=== PATIENT | female | born 1970 | race African-American/Black ===

== ENCOUNTER 2018-06-11 10:57 | Inpatient (IN) | payer MEDICARE, OTHER ==
[2018-06-11] VITALS (10 sets, daily range): BP systolic 156–190; BP diastolic 0–90
[~2018-06-11] VITALS: Ht 165.1 cm; Wt 128.9 kg
[~2018-06-11 10:57] MED LIST: ALBU2.5V5 NEB; LISI1TAB7 PO; MELO7.5T29 PO; METF500T16 PO; METO50TA6 PO; OMEP40CA5 PO; TRAM50TA PO; VENTOLIN HFA8 GM IH
[2018-06-11] MEDS ORDERED: methylPREDNISolone SOD SUCC PF 125 MG/2 ML VIAL. IV ONE (11:30)
[2018-06-11] MEDS ORDERED: cloNIDine HCL 0.1 MG TABLET PO ONE (11:30)
[2018-06-11] MEDS ORDERED: amLODIPine BESYLATE 5 MG TABLET PO ONE (11:30)
[2018-06-11] MEDS ORDERED: IPRATRPIUM/ALBUTEROL 0.5/2.5MG 3 ML NEBU. NEB ONE (11:30)
--- NOTE | 2018-06-11 11:31 | PHYS DOC ---
Past Medical History Past Medical History: Asthma, Diabetes-Type II, Hypertension, Schizophrenia Additional Past Medical Histor: schizoeffective disorder, bipolar,obesity Past Surgical History: Alcohol Use: Occasionally Drug Use: Cocaine, Marijuana Adult General Chief Complaint Chief Complaint: ASTHMA HPI HPI Patient is a 47 [facility] She has been out of her blood pressure medication for at least a few weeks. She is still smoking she has a history of asthma she is coming in with increasing shortness of breath as well as sleepiness in the setting of increased cough over the last 2-3 days she does have her inhalers she has been using them but they are not providing adequate relief. Sat was in the mid 80s she is on home oxygen 2-3 L. She disposed using CPAP she is not using it. Further history was limited by patient's mental status. Review of Systems Review of Systems Limited by mental status Current Medications Current Medications Current Medications Medications (Trade) Dose Ordered Sig/Evelin Start Time Stop Time Status Last Admin Dose Admin Albuterol/ Ipratropium (Duoneb) 3 ml 1X ONCE 06/11/18 11:30 06/11/18 11:31 DC 06/11/18 11:45 3 ML Amlodipine Besylate (Norvasc) 10 mg 1X ONCE 06/11/18 11:30 06/11/18 11:31 DC 06/11/18 11:46 10 MG Clonidine HCl (Catapres) 0.2 mg 1X ONCE 06/11/18 11:30 06/11/18 11:31 DC 06/11/18 11:44 0.2 MG Methylprednisolone Sodium Succinate (SOLU-Medrol 125MG VIAL) 125 mg 1X ONCE 06/11/18 11:30 06/11/18 11:31 DC 06/11/18 11:44 125 MG Allergies Allergies Allergies Coded Allergies Type Severity Reaction Last Updated Verified No Known Drug Allergies 04/22/16 No Physical Exam Physical Exam Constitutional: Well developed, in moderate distress sleepy but arousable to voice. Obese HENT: Normocephalic, atraumatic, bilateral external ears normal, oropharynx moist, no oral exudates, nose normal. [] Eyes: PERRLA, EOMI, conjunctiva normal, no discharge. [] Neck: Normal range of motion, no tenderness, supple, no stridor. [] Cardiovascular:Heart rate regular rhythm, no murmur [] Lungs & Thorax: Wheezing noted bilaterally increased respiratory effort as noted. Abdomen: Bowel sounds normal, soft, no tenderness, no masses, no pulsatile masses. [] Skin: Warm, dry, no erythema, no rash. [] Back: No tenderness, no CVA tenderness. [] Extremities: No tenderness, no cyanosis, no clubbing, ROM intact, obese difficult to assess for edema Neurologic: Alert and oriented X 3 stimulated by voice only., normal motor function, normal sensory function, no focal deficits noted. [] Psychologic: Affect normal, judgement normal, mood normal. [] Current Patient Data Vital Signs Vital Signs Date Time Temp Pulse Resp B/P (MAP) Pulse Ox O2 Delivery O2 Flow Rate FiO2 06/11/18 11:46 87 215/121 06/11/18 11:30 95 Room Air 3.0 06/11/18 11:04 98.2 26 98.2 Lab Values Laboratory Tests Test 06/11/18 11:16 06/11/18 11:30 O2 Saturation 96 % (92-99) Arterial Blood pH 7.38 (7.35-7.45) Arterial Blood pCO2 at Patient Temp 57 mmHg (35-46) H Arterial Blood pO2 at Patient Temp 80 mmHg (75-108) Arterial Blood HCO3 33 mmol/L (21-28) H Arterial Blood Base Excess 6 mmol/L (-3-3) H FiO2 34 White Blood Count 9.4 x10^3/uL (4.0-11.0) Red Blood Count 6.66 x10^6/uL (3.50-5.40) H Hemoglobin 15.8 g/dL (12.0-15.5) H Hematocrit 49.1 % (36.0-47.0) H Mean Corpuscular Volume 74 fL (79-100) L Mean Corpuscular Hemoglobin 24 pg (25-35) L Mean Corpuscular Hemoglobin Concent 32 g/dL (31-37) Red Cell Distribution Width 25.5 % (11.5-14.5) H Platelet Count 239 x10^3/uL (140-400) Neutrophils (%) (Auto) 74 % (31-73) H Lymphocytes (%) (Auto) 18 % (24-48) L Monocytes (%) (Auto) 7 % (0-9) Eosinophils (%) (Auto) 1 % (0-3) Basophils (%) (Auto) 1 % (0-3) Neutrophils # (Auto) 7.0 x10^3uL (1.8-7.7) Lymphocytes # (Auto) 1.7 x10^3/uL (1.0-4.8) Monocytes # (Auto) 0.6 x10^3/uL (0.0-1.1) Eosinophils # (Auto) 0.1 x10^3/uL (0.0-0.7) Basophils # (Auto) 0.0 x10^3/uL (0.0-0.2) Platelet Estimate Adequate (ADEQUATE) Giant Platelets Occ Polychromasia Mod Anisocytosis Mod Microcytosis Slight Laboratory Tests 06/11/18 11:30 EKG EKG [] Interpretation Time: EKG shows a normal sinus rhythm rate of 85 no obvious acute ischemic changes noted the QTC was 471 this was interpreted by me time of encounter. Radiology/Procedures Radiology/Procedures [] Course & Med Decision Making Course & Med Decision Making Pertinent Labs and Imaging studies reviewed. (See chart for details) Interpretation of blood gas did show a pH of 7.37 with a PCO2 of 57 and a bicarbonate of 32.8 this is a mostly compensated chronic respiratory acidosis Critical care time was 35 minutes exclusive of procedures. For management of acute hypoxemic respiratory failure requiring oxygen support frequent nebs ABG evaluation and close monitoring the emergency room. 47 okay with a history of asthma obesity and sleep apnea who is basically noncompliant she is still smoking she is not using CPAP, she is offered pressure medications for several days at least presenting with acute hypoxemic respiratory failure. We'll get psych she did not look terrible CO2 was elevated but the pH was okay. Patient did have some somnolence I recommended BiPAP she declined that she refused it she did actually even at 1.1 of leaving AGAINST MEDICAL ADVICE but I was able to convince her to stay. BNP was mildly elevated chest x-ray looks slightly wet so ordered a dose of Lasix blood pressure at this time as of 1:15 PM is 178 systolic after the above treatment. Patient be managed the intensive care unit under the care of Dr. Ch for further management. Nathan Disclaimer Dragon Disclaimer This electronic medical record was generated, in whole or in part, using a voice recognition dictation system. Departure Departure Impression: Primary Impression: Asthma exacerbation Disposition: ADMITTED INPATIENT Admitting Physician: El Stauffer Condition: STABLE Referrals: UNKNOWN PCP NAME (PCP) DEEP BARGER MD Jun 11, 2018 11:31
[2018-06-11 11:50] LABS: BASE EXCESS ABG 6 mmol/L (-3-3); HCO3 ABG 33 mmol/L (21-28); PCO2 ABG 57 mmHg (35-46); PO2 ABG 80 mmHg (75-108); SAT O2 ABG 96 % (92-99)
[2018-06-11 11:59] LABS: BASO % 1 % (0-3); EOS # 0.1 x10^3/uL (0.0-0.7); EOS % 1 % (0-3); HEMATOCRIT 49.1 % (36.0-47.0); HEMOGLOBIN 15.8 g/dL (12.0-15.5); LYMPH # 1.7 x10^3/uL (1.0-4.8); LYMPH % 18 % (24-48); MEAN CORPUSCULAR HEMOGLOBIN 24 pg (25-35); MEAN CORPUSCULAR HGB CONC 32 g/dL (31-37); MEAN CORPUSCULAR VOLUME 74 fL (79-100); MONO # 0.6 x10^3/uL (0.0-1.1); MONO % 7 % (0-9); NEUT % 74 % (31-73); PLATELET COUNT 239 x10^3/uL (140-400); RED BLOOD COUNT 6.66 x10^6/uL (3.50-5.40); RED CELL DISTRIBUTION WIDTH 25.5 % (11.5-14.5); WHITE BLOOD COUNT 9.4 x10^3/uL (4.0-11.0)
--- NOTE | 2018-06-11 12:05 | PDOC1 ---
History and Physical Date of Admission Date of Admission DATE: 06/11/18 TIME: 12:04 Identification/Chief Complaint Chief Complaint CC SEEN IN ER , brought in by emesis with shortness of breath., has been out of her blood pressure medication for at least a few weeks. still smoking she has a history of asthma NOTES increasing shortness of breath as well as sleepiness in the setting of increased cough over the last 2- 3 days Sat was in the mid 80s she is on home oxygen 2-3 L. Past Medical History Past Medical History Past Medical History Past Medical History Past Medical History: Asthma, Diabetes-Type II, Hypertension, Schizophrenia Additional Past Medical Histor: schizoeffective disorder, bipolar,obesity Past Surgical History: Alcohol Use: Occasionally Drug Use: Cocaine, Marijuana family hx obesity Cardiovascular: HTN, Hyperlipidemia Pulmonary: Asthma Psych: Addictions ENT: No pertinent hx Endocrine: Diabetes Past Surgical History Past Surgical History: No pertinent history Family History Family History: Asthma Social History Smoke: <1 pack per day ALCOHOL: occassional Drugs: None, Cocaine Current Problem List Problem List Problems Medical Problems: (1) Asthma exacerbation Status: Acute Current Medications Current Medications Current Medications Albuterol/ Ipratropium (Duoneb) 3 ml 1X ONCE NEB Last administered on at 11:45; Start 06/11/18 at 11:30; Stop 06/11/18 at 11:31; Status DC Methylprednisolone Sodium Succinate (SOLU-Medrol 125MG VIAL) 125 mg 1X ONCE IV Last administered on 06/11/18at 11:44; Start 06/11/18 at 11:30; Stop 06/11/18 at 11:31; Status DC Clonidine HCl (Catapres) 0.2 mg 1X ONCE PO Last administered on 06/11/18at 11: 44; Start 06/11/18 at 11:30; Stop 06/11/18 at 11:31; Status DC Amlodipine Besylate (Norvasc) 10 mg 1X ONCE PO Last administered on 06/11/18at 11:46; Start 06/11/18 at 11:30; Stop 06/11/18 at 11:31; Status DC Active Scripts Active Reported Albuterol Sulfate Neb Soln (Albuterol Sulfate) 2.5 Mg/3 Ml Vial.neb 1 Vial NEB PRN Q4HRS Metoprolol Tartrate 50 Mg Tablet 1 Tab PO DAILY Ventolin Hfa (Albuterol Sulfate) 8 Gm Hfa.aer.ad 8 Gm IH Metformin Hcl 500 Mg Tablet 1 Tab PO TID Tramadol Hcl 50 Mg Tablet 1 Tab PO BID Meloxicam 7.5 Mg Tablet 1 Tab PO BID Lisinopril-Hctz 20-25 Mg Tab (Lisinopril/Hydrochlorothiazide) 1 Each Tablet 1 Tab PO DAILY Omeprazole 40 Mg Capsule.dr 1 Cap PO DAILY Allergies Allergies: Coded Allergies: No Known Drug Allergies (Unverified , 04/22/16) ROS Review of System Physical Exam Physical Exam Constitutional: Well developed, in moderate distress sleepy arousable to voice. Obese HENT: Normocephalic, atraumatic, bilateral external ears normal, oropharynx moist, no oral exudates, nose normal. [] Eyes: PERRLA, EOMI, conjunctiva normal, no discharge. [] Neck: Normal range of motion, no tenderness, supple, no stridor. [] Cardiovascular:Heart rate regular rhythm, no murmur [] Lungs & Thorax: Wheezing noted bilaterally increased respiratory effort as noted. Abdomen: Bowel sounds normal, soft, no tenderness, no masses, no pulsatile masses. [] Skin: Warm, dry, no erythema, no rash. [] Back: No tenderness, no CVA tenderness. [] Extremities: No tenderness, no cyanosis, no clubbing, ROM intact, obese difficult to assess for edema Neurologic: Alert and oriented X 3 stimulated by voice only., normal motor function, normal sensory function, no focal deficits noted. [] Psychologic: Affect normal, judgement POOR, mood normal. [] General: YES: Fatigue, Malaise PSYCHOLOGICAL ROS: YES: Anxiety Eyes: No Blurry vision, No Decreased vision, No Double vision, No Dry eyes, No Excessive tearing, No Eye Pain, No Itchy Eyes, No Loss of vision, No Photophobia , No Scotomata, No Uses contacts, No Uses glasses, No Other HEENT: No: Heacaches, Visual Changes, Hearing change, Nasal congestion, Nasal discharge, Oral lesions, Sinus pain, Sore Throat, Epistaxis, Sneezing, Snoring, Tinnitus, Vertigo, Vocal changes, Other Respiratory: YES: Cough, Shortness of breath, SOB with excertion, Tachypnea, Wheezing Cardiovascular: No Chest Pain, No Palpitations, No Orthopnea, No Paroxysmal Noc. Dyspnea, No Edema, No Lt Headedness, No Other Gastrointestinal: Yes Nausea, Yes Vomiting Skin: Yes Dry Skin Physical Exam Physical Exam Breasts: Not examined Rectal Exam: not examined PELVIC: Examination not indicated Extremities: No edema Neuro: Normal speech, Cranial nerves 3-12 NL Vitals Vitals Vital Signs Date Time Temp Pulse Resp B/P (MAP) Pulse Ox O2 Delivery O2 Flow Rate FiO2 06/11/18 11:46 87 215/121 06/11/18 11:30 95 Room Air 3.0 06/11/18 11:04 98.2 26 98.2 Labs Labs Laboratory Tests Test 06/11/18 11:30 White Blood Count 9.4 x10^3/uL (4.0-11.0) Red Blood Count 6.66 x10^6/uL (3.50-5.40) Hemoglobin 15.8 g/dL (12.0-15.5) Hematocrit 49.1 % (36.0-47.0) Mean Corpuscular Volume 74 fL (79-100) Mean Corpuscular Hemoglobin 24 pg (25-35) Mean Corpuscular Hemoglobin Concent 32 g/dL (31-37) Red Cell Distribution Width 25.5 % (11.5-14.5) Platelet Count 239 x10^3/uL (140-400) Neutrophils (%) (Auto) 74 % (31-73) Lymphocytes (%) (Auto) 18 % (24-48) Monocytes (%) (Auto) 7 % (0-9) Eosinophils (%) (Auto) 1 % (0-3) Basophils (%) (Auto) 1 % (0-3) Neutrophils # (Auto) 7.0 x10^3uL (1.8-7.7) Lymphocytes # (Auto) 1.7 x10^3/uL (1.0-4.8) Monocytes # (Auto) 0.6 x10^3/uL (0.0-1.1) Eosinophils # (Auto) 0.1 x10^3/uL (0.0-0.7) Basophils # (Auto) 0.0 x10^3/uL (0.0-0.2) Laboratory Tests Test 06/11/18 11:30 White Blood Count 9.4 x10^3/uL (4.0-11.0) Red Blood Count 6.66 x10^6/uL (3.50-5.40) Hemoglobin 15.8 g/dL (12.0-15.5) Hematocrit 49.1 % (36.0-47.0) Mean Corpuscular Volume 74 fL (79-100) Mean Corpuscular Hemoglobin 24 pg (25-35) Mean Corpuscular Hemoglobin Concent 32 g/dL (31-37) Red Cell Distribution Width 25.5 % (11.5-14.5) Platelet Count 239 x10^3/uL (140-400) Neutrophils (%) (Auto) 74 % (31-73) Lymphocytes (%) (Auto) 18 % (24-48) Monocytes (%) (Auto) 7 % (0-9) Eosinophils (%) (Auto) 1 % (0-3) Basophils (%) (Auto) 1 % (0-3) Neutrophils # (Auto) 7.0 x10^3uL (1.8-7.7) Lymphocytes # (Auto) 1.7 x10^3/uL (1.0-4.8) Monocytes # (Auto) 0.6 x10^3/uL (0.0-1.1) Eosinophils # (Auto) 0.1 x10^3/uL (0.0-0.7) Basophils # (Auto) 0.0 x10^3/uL (0.0-0.2) VTE Prophylaxis Ordered VTE Prophylaxis Devices: Yes VTE Pharmacological Prophylaxi: Yes Assessment/Plan Assessment/Plan Impression: SevereAsthma exacerbation tobacco abuse cocaine abuse morbid obesity HYPERCAPNIC RESP FAILURE plan ADMITTED INPATIENT ICU BED IV STEROIDS SOLUMEDROL 125MG Q 6 HRS O2 SUPPORT PULM CONSULT SINGULAIR 10MG PO DAILY ZYRTEC 10 MG PO DAILY EDUCATED ON SMOKING CESSATION PROVIDED IV PROTONIX LOVENOX DVT PROPHYLAXIS 40 MIN CC TIME AMANDA KAMARA MD Jun 11, 2018 12:05
[2018-06-11 12:09] LABS: FIO2 ABG 34
--- NOTE | 2018-06-11 12:32 | EKG ---
[facility] [address] [place] [address] Test Date: 2018-06-11 Test Time: 11:31:56 Pat Name: DERICK JIMÉNEZ Department: Room: Gender: F Pharmacy Data Analyst: NESSA : 1970 Requested By: DEEP BARGER Order Number: [id number] Reading MD: Sumeet Dixon Measurements Intervals [place] Rate: 85 P: 48 MA: 146 QRS: -34 QRSD: 84 T: 22 QT: 396 QTc: 471 Interpretive Statements SINUS RHYTHM ABNORMAL LEFT AXIS DEVIATION QRS(T) CONTOUR ABNORMALITY CONSISTENT WITH INFERIOR INFARCT PROBABLY OLD ABNORMAL ECG Electronically Signed On 06-12-2018 11:13:11 CDT by Sumeet Dixon
--- NOTE | 2018-06-11 12:40 | RAD ---
Portable chest, 06/11/2018: HISTORY: Shortness of breath, wheezing, cough Comparison is made to a study from 04/22/2016. The heart is mildly enlarged and unchanged. The pulmonary vascularity is prominent, but better defined than on the previous study. No pulmonary infiltrate is seen. There is no evidence of pleural fluid. IMPRESSION: Cardiomegaly with borderline vascular congestion. Electronically signed by: Ac Muller MD (06/11/2018 12:37 PM) [facility]
[2018-06-11 12:51] LABS: CALCIUM 9.2 mg/dL (8.5-10.1); CREATININE 0.7 mg/dL (0.6-1.0); GFR 108.5; POTASSIUM 3.8 mmol/L (3.5-5.1)
[2018-06-11 12:53] LABS: PROTHROMBIN TIME PATIENT 12.4 SEC (11.7-14.0)
[2018-06-11 12:54] LABS: ANISOCYTOSIS MOD; MICROCYTOSIS SLIGHT; PLT ESTIMATE ADEQUATE (ADEQUATE); POLYCHROMASIA MOD
[2018-06-11 12:58] LABS: ALBUMIN 2.4 g/dL (3.4-5.0); ALBUMIN/GLOBULIN RATIO 0.5 (1.0-1.7); TOTAL BILIRUBIN 0.4 mg/dL (0.2-1.0); TOTAL PROTEIN 7.7 g/dL (6.4-8.2)
[2018-06-11] MEDS ORDERED: FUROSEMIDE 40 MG/4 ML VIAL. IVP ONE (13:15)
--- NOTE | 2018-06-11 16:26 | PDOC ---
PULMONARY PROGRESS NOTES Vitals Vital Signs Date Time Temp Pulse Resp B/P (MAP) Pulse Ox O2 Delivery O2 Flow Rate FiO2 06/11/18 15:00 95 25 177/0 (58) 91 Venturi Mask 12.0 06/11/18 14:00 98.8 98.8 Labs Laboratory Tests Test 06/11/18 11:16 06/11/18 11:30 06/11/18 12:32 O2 Saturation 96 % (92-99) Arterial Blood pH 7.38 (7.35-7.45) Arterial Blood pCO2 at Patient Temp 57 mmHg (35-46) Arterial Blood pO2 at Patient Temp 80 mmHg (75-108) Arterial Blood HCO3 33 mmol/L (21-28) Arterial Blood Base Excess 6 mmol/L (-3-3) FiO2 34 White Blood Count 9.4 x10^3/uL (4.0-11.0) Red Blood Count 6.66 x10^6/uL (3.50-5.40) Hemoglobin 15.8 g/dL (12.0-15.5) Hematocrit 49.1 % (36.0-47.0) Mean Corpuscular Volume 74 fL (79-100) Mean Corpuscular Hemoglobin 24 pg (25-35) Mean Corpuscular Hemoglobin Concent 32 g/dL (31-37) Red Cell Distribution Width 25.5 % (11.5-14.5) Platelet Count 239 x10^3/uL (140-400) Neutrophils (%) (Auto) 74 % (31-73) Lymphocytes (%) (Auto) 18 % (24-48) Monocytes (%) (Auto) 7 % (0-9) Eosinophils (%) (Auto) 1 % (0-3) Basophils (%) (Auto) 1 % (0-3) Neutrophils # (Auto) 7.0 x10^3uL (1.8-7.7) Lymphocytes # (Auto) 1.7 x10^3/uL (1.0-4.8) Monocytes # (Auto) 0.6 x10^3/uL (0.0-1.1) Eosinophils # (Auto) 0.1 x10^3/uL (0.0-0.7) Basophils # (Auto) 0.0 x10^3/uL (0.0-0.2) Platelet Estimate Adequate (ADEQUATE) Giant Platelets Occ Polychromasia Mod Anisocytosis Mod Microcytosis Slight Prothrombin Time 12.4 SEC (11.7-14.0) Prothromb Time International Ratio 1.0 (0.8-1.1) Maternal Serum HCG Beta Subunit 2 mIU/mL (0-5) Sodium Level 139 mmol/L (136-145) Potassium Level 3.8 mmol/L (3.5-5.1) Chloride Level 101 mmol/L (98-107) Carbon Dioxide Level 33 mmol/L (21-32) Anion Gap 5 (6-14) Blood Urea Nitrogen 7 mg/dL (7-20) Creatinine 0.7 mg/dL (0.6-1.0) Estimated GFR (Cockcroft-Gault) 108.5 BUN/Creatinine Ratio 10 (6-20) Glucose Level 165 mg/dL (70-99) Calcium Level 9.2 mg/dL (8.5-10.1) Total Bilirubin 0.4 mg/dL (0.2-1.0) Aspartate Amino Transf (AST/SGOT) 13 U/L (15-37) Alanine Aminotransferase (ALT/SGPT) 19 U/L (14-59) Alkaline Phosphatase 115 U/L (46-116) Troponin I Quantitative < 0.017 ng/mL (0.000-0.055) KI-Ndt-L-Type Natriuretic Peptide 515 pg/mL (0-124) Total Protein 7.7 g/dL (6.4-8.2) Albumin 2.4 g/dL (3.4-5.0) Albumin/Globulin Ratio 0.5 (1.0-1.7) Laboratory Tests Test 06/11/18 11:16 06/11/18 11:30 06/11/18 12:32 O2 Saturation 96 % (92-99) Arterial Blood pH 7.38 (7.35-7.45) Arterial Blood pCO2 at Patient Temp 57 mmHg (35-46) Arterial Blood pO2 at Patient Temp 80 mmHg (75-108) Arterial Blood HCO3 33 mmol/L (21-28) Arterial Blood Base Excess 6 mmol/L (-3-3) FiO2 34 White Blood Count 9.4 x10^3/uL (4.0-11.0) Red Blood Count 6.66 x10^6/uL (3.50-5.40) Hemoglobin 15.8 g/dL (12.0-15.5) Hematocrit 49.1 % (36.0-47.0) Mean Corpuscular Volume 74 fL (79-100) Mean Corpuscular Hemoglobin 24 pg (25-35) Mean Corpuscular Hemoglobin Concent 32 g/dL (31-37) Red Cell Distribution Width 25.5 % (11.5-14.5) Platelet Count 239 x10^3/uL (140-400) Neutrophils (%) (Auto) 74 % (31-73) Lymphocytes (%) (Auto) 18 % (24-48) Monocytes (%) (Auto) 7 % (0-9) Eosinophils (%) (Auto) 1 % (0-3) Basophils (%) (Auto) 1 % (0-3) Neutrophils # (Auto) 7.0 x10^3uL (1.8-7.7) Lymphocytes # (Auto) 1.7 x10^3/uL (1.0-4.8) Monocytes # (Auto) 0.6 x10^3/uL (0.0-1.1) Eosinophils # (Auto) 0.1 x10^3/uL (0.0-0.7) Basophils # (Auto) 0.0 x10^3/uL (0.0-0.2) Platelet Estimate Adequate (ADEQUATE) Giant Platelets Occ Polychromasia Mod Anisocytosis Mod Microcytosis Slight Prothrombin Time 12.4 SEC (11.7-14.0) Prothromb Time International Ratio 1.0 (0.8-1.1) Maternal Serum HCG Beta Subunit 2 mIU/mL (0-5) Sodium Level 139 mmol/L (136-145) Potassium Level 3.8 mmol/L (3.5-5.1) Chloride Level 101 mmol/L (98-107) Carbon Dioxide Level 33 mmol/L (21-32) Anion Gap 5 (6-14) Blood Urea Nitrogen 7 mg/dL (7-20) Creatinine 0.7 mg/dL (0.6-1.0) Estimated GFR (Cockcroft-Gault) 108.5 BUN/Creatinine Ratio 10 (6-20) Glucose Level 165 mg/dL (70-99) Calcium Level 9.2 mg/dL (8.5-10.1) Total Bilirubin 0.4 mg/dL (0.2-1.0) Aspartate Amino Transf (AST/SGOT) 13 U/L (15-37) Alanine Aminotransferase (ALT/SGPT) 19 U/L (14-59) Alkaline Phosphatase 115 U/L (46-116) Troponin I Quantitative < 0.017 ng/mL (0.000-0.055) UP-Dla-M-Type Natriuretic Peptide 515 pg/mL (0-124) Total Protein 7.7 g/dL (6.4-8.2) Albumin 2.4 g/dL (3.4-5.0) Albumin/Globulin Ratio 0.5 (1.0-1.7) Medications Active Scripts Medications Dose Route/Sig Max Daily Dose Days Date Category Albuterol Sulfate Neb Soln (Albuterol Sulfate) 2.5 Mg/3 Ml Vial.neb 1 Vial NEB PRN Q4HRS 04/22/16 Reported Metoprolol Tartrate 50 Mg Tablet 1 Tab PO DAILY 04/22/16 Reported Ventolin Hfa (Albuterol Sulfate) 8 Gm Hfa.aer.ad 8 Gm IH 04/22/16 Reported Metformin Hcl 500 Mg Tablet 1 Tab PO TID 04/22/16 Reported Tramadol Hcl 50 Mg Tablet 1 Tab PO BID 04/22/16 Reported Meloxicam 7.5 Mg Tablet 1 Tab PO BID 04/22/16 Reported Lisinopril-Hctz 20-25 Mg Tab (Lisinopril/Hydrochlorothiazide) 1 Each Tablet 1 Tab PO DAILY 04/22/16 Reported Omeprazole 40 Mg Capsule. 1 Cap PO DAILY 04/22/16 Reported Impression . FULL CONSULT DICTATED AGREE WITH CURRENT RX A/C RESP FAILURE AECOPD A/C DIAST HEART FAILURE MIGUEL STOUT MD Jun 11, 2018 16:26
[2018-06-11] MEDS: methylPREDNISolone SOD SUCC PF 125 MG/2 ML VIAL. IV SCH (17:30)
[2018-06-11] MEDS: metFORMIN 500 MG TABLET PO SCH (17:30)
[2018-06-11] MEDS ORDERED: ENALAPRILAT 1.25 MG/ML VIAL. IVP SCH (18:00)
[2018-06-11] MEDS: ALBUTEROL SULFATE 2.5 MG/3 ML NEBU. NEB PRN ×2 (20:13→23:20)
[2018-06-11] MEDS: METOPROLOL TART IMMED RELEASE 50 MG TABLET. PO SCH (20:53)
[2018-06-11] MEDS ORDERED: MONTELUKAST SODIUM 10 MG TABLET. PO SCH (21:00)
--- NOTE | 2018-06-11 22:22 | CONS ---
DATE OF CONSULTATION: 06/11/2018 ATTENDING PHYSICIAN: Dr. Ch. REASON FOR CONSULTATION: The patient seen in pulmonary consultation at the request of Dr. Ch for acute on chronic respiratory failure. HISTORY OF PRESENT ILLNESS: The patient is a 47-year-old female. She is seeking medical attention for basically emesis and shortness of breath. She has apparently been out of her blood pressure medication for a few weeks. She has a history of smoking and history of COPD. She normally wears oxygen at home at 2-3 liters, she was saturating 80%. She had a CPAP unit which she could not utilize. She was intolerant, she disposed it. The patient was seen in the intensive care unit. She was very sleepy, but arousable, had a cough, mostly nonproductive. She was on a Venturi mask. Her arterial blood gas revealed a pH of 7.38, PaCO2 of 57, pO2 of 80. LABORATORY DATA: White count was not elevated. Electrolytes were noted. BUN and creatinine noted. INR was 1.0. PAST MEDICAL HISTORY: Remarkable for COPD, unknown FEV1, hypertension, diabetes, obstructive sleep apnea. PAST SURGICAL HISTORY: No recent major surgeries. FAMILY HISTORY: Asthma. SOCIAL HISTORY: She smokes. Denies any alcohol intake or drugs. REVIEW OF SYSTEMS: As indicated above, otherwise other systems could not be adequately reviewed secondary to patient's sleepiness. CURRENT MEDICATION: List was reviewed. Home medication list was likewise reviewed. PHYSICAL EXAMINATION: VITAL SIGNS: Morbidly obese individual with a body mass index of 47, in mild respiratory distress, elevated respiratory rate in the intensive care unit on a Venturi mask, sats greater than 90%. HEENT: Eyes, the sclerae were nonicteric. NECK: Jugular venous distention could not be assessed secondary to body habitus. CHEST: Full expansion. LUNGS: Adequate airway flow with some scattered rhonchi. CARDIOVASCULAR: Regular rate and rhythm with S1, S2, no S3. ABDOMEN: Soft, nontender, nondistended. EXTREMITIES: No clubbing, cyanosis, some edema. NEUROLOGIC: The patient was sleepy, but arousable, following commands. A detailed neuro exam was not performed. LABORATORY DATA: As indicated above. IMAGING: Chest x-ray revealed cardiomegaly with vascular congestion. IMPRESSION: 1. Acute on chronic hypoxemic hypercapnic respiratory failure. 2. Acute on chronic diastolic heart failure. 3. Acute exacerbation of chronic obstructive pulmonary disease. 4. Morbid obesity. 5. Prior history of drug use. PLAN: 1. We will continue current Venturi mask, if patient continues to do poorly she will require BiPAP. 2. Steroids. 3. Diurese. 4. Antibiotics. 5. Nebulized treatments. 6. Continue home meds. 7. Outpatient polysomnogram. I do appreciate the privilege in sharing this patient's care. MIGUEL STOUT MD DR: TAVIA/billy JOB#: [id number] / [id number]
[2018-06-12] VITALS (11 sets, daily range): BP systolic 130–194; BP diastolic 75–94
[2018-06-12] MEDS: methylPREDNISolone SOD SUCC PF 125 MG/2 ML VIAL. IV SCH ×2 (00:13→05:26)
[2018-06-12 03:27] LABS: BASO % 0 % (0-3); EOS % 0 % (0-3); HEMATOCRIT 51.1 % (36.0-47.0); HEMOGLOBIN 15.8 g/dL (12.0-15.5); LYMPH # 0.8 x10^3/uL (1.0-4.8); LYMPH % 7 % (24-48); MEAN CORPUSCULAR HEMOGLOBIN 23 pg (25-35); MEAN CORPUSCULAR HGB CONC 31 g/dL (31-37); MEAN CORPUSCULAR VOLUME 75 fL (79-100); MONO # 0.1 x10^3/uL (0.0-1.1); MONO % 1 % (0-9); NEUT # 12.1 x10^3uL (1.8-7.7); NEUT % 92 % (31-73); PLATELET COUNT 203 x10^3/uL (140-400); RED BLOOD COUNT 6.81 x10^6/uL (3.50-5.40); RED CELL DISTRIBUTION WIDTH 24.6 % (11.5-14.5)
[2018-06-12 03:34] LABS: CALCIUM 9.7 mg/dL (8.5-10.1); CREATININE 0.9 mg/dL (0.6-1.0); GFR 81.2
[2018-06-12 03:40] LABS: ALBUMIN 2.5 g/dL (3.4-5.0); ALBUMIN/GLOBULIN RATIO 0.4 (1.0-1.7); TOTAL BILIRUBIN 0.3 mg/dL (0.2-1.0); TOTAL PROTEIN 8.3 g/dL (6.4-8.2)
[2018-06-12 04:02] LABS: % BANDS 1 % (0-9); % LYMPHS 6 % (24-48); % MONOS 1 % (0-10); % SEGS 92 % (35-66); ANISOCYTOSIS MOD; PLT ESTIMATE ADEQUATE (ADEQUATE); POLYCHROMASIA SLIGHT; SPHEROCYTES OCC; TOXIC VACUOLATION SLIGHT
--- NOTE | 2018-06-12 07:58 | RAD ---
Portable chest, 06/12/2018: HISTORY: Congestive heart failure Comparison is made to yesterday's study. The depth of inspiration is suboptimal. The heart is enlarged. The pulmonary vascularity remains prominent. No pulmonary infiltrate is seen. There is no evidence of pleural fluid. IMPRESSION: No significant change since yesterday study. Electronically signed by: Ac Muller MD (06/12/2018 7:54 AM) [facility]
[2018-06-12] MEDS ORDERED: PANTOPRAZOLE IV PUSH 40 MG VIAL. IVP SCH (08:00)
[2018-06-12] MEDS: METOPROLOL TART IMMED RELEASE 50 MG TABLET. PO SCH (08:28)
[2018-06-12] MEDS: metFORMIN 500 MG TABLET PO SCH (08:28)
[2018-06-12] MEDS ORDERED: hydroCHLOROthiazide 25 MG TABLET PO SCH (09:00)
[2018-06-12] MEDS ORDERED: NON FORMULARY ITEM (Omeprazole 1 CAP) PO SCH (09:00)
[2018-06-12] MEDS ORDERED: CETIRIZINE HCL 10 MG TABLET. PO SCH (09:00)
[2018-06-12] MEDS ORDERED: LISINOPRIL 20 MG TABLET PO SCH (09:00)
--- NOTE | 2018-06-12 09:01 | PDOC ---
PULMONARY PROGRESS NOTES Vitals Vital Signs Date Time Temp Pulse Resp B/P (MAP) Pulse Ox O2 Delivery O2 Flow Rate FiO2 06/12/18 08:30 Room Air 06/12/18 08:28 80 142/84 06/12/18 08:00 97.7 30 89 97.7 06/11/18 15:00 12.0 Labs Laboratory Tests Test 06/11/18 11:16 06/11/18 11:30 06/11/18 12:32 06/11/18 14:30 O2 Saturation 96 % (92-99) Arterial Blood pH 7.38 (7.35-7.45) Arterial Blood pCO2 at Patient Temp 57 mmHg (35-46) Arterial Blood pO2 at Patient Temp 80 mmHg (75-108) Arterial Blood HCO3 33 mmol/L (21-28) Arterial Blood Base Excess 6 mmol/L (-3-3) FiO2 34 White Blood Count 9.4 x10^3/uL (4.0-11.0) Red Blood Count 6.66 x10^6/uL (3.50-5.40) Hemoglobin 15.8 g/dL (12.0-15.5) Hematocrit 49.1 % (36.0-47.0) Mean Corpuscular Volume 74 fL (79-100) Mean Corpuscular Hemoglobin 24 pg (25-35) Mean Corpuscular Hemoglobin Concent 32 g/dL (31-37) Red Cell Distribution Width 25.5 % (11.5-14.5) Platelet Count 239 x10^3/uL (140-400) Neutrophils (%) (Auto) 74 % (31-73) Lymphocytes (%) (Auto) 18 % (24-48) Monocytes (%) (Auto) 7 % (0-9) Eosinophils (%) (Auto) 1 % (0-3) Basophils (%) (Auto) 1 % (0-3) Neutrophils # (Auto) 7.0 x10^3uL (1.8-7.7) Lymphocytes # (Auto) 1.7 x10^3/uL (1.0-4.8) Monocytes # (Auto) 0.6 x10^3/uL (0.0-1.1) Eosinophils # (Auto) 0.1 x10^3/uL (0.0-0.7) Basophils # (Auto) 0.0 x10^3/uL (0.0-0.2) Platelet Estimate Adequate (ADEQUATE) Giant Platelets Occ Polychromasia Mod Anisocytosis Mod Microcytosis Slight Prothrombin Time 12.4 SEC (11.7-14.0) Prothromb Time International Ratio 1.0 (0.8-1.1) Maternal Serum HCG Beta Subunit 2 mIU/mL (0-5) Sodium Level 139 mmol/L (136-145) Potassium Level 3.8 mmol/L (3.5-5.1) Chloride Level 101 mmol/L (98-107) Carbon Dioxide Level 33 mmol/L (21-32) Anion Gap 5 (6-14) Blood Urea Nitrogen 7 mg/dL (7-20) Creatinine 0.7 mg/dL (0.6-1.0) Estimated GFR (Cockcroft-Gault) 108.5 BUN/Creatinine Ratio 10 (6-20) Glucose Level 165 mg/dL (70-99) Calcium Level 9.2 mg/dL (8.5-10.1) Total Bilirubin 0.4 mg/dL (0.2-1.0) Aspartate Amino Transf (AST/SGOT) 13 U/L (15-37) Alanine Aminotransferase (ALT/SGPT) 19 U/L (14-59) Alkaline Phosphatase 115 U/L (46-116) Troponin I Quantitative < 0.017 ng/mL (0.000-0.055) JB-Upk-F-Type Natriuretic Peptide 515 pg/mL (0-124) Total Protein 7.7 g/dL (6.4-8.2) Albumin 2.4 g/dL (3.4-5.0) Albumin/Globulin Ratio 0.5 (1.0-1.7) Nasal Screen MRSA (PCR) Negative (Negative) Test 06/12/18 02:55 White Blood Count 13.0 x10^3/uL (4.0-11.0) Red Blood Count 6.81 x10^6/uL (3.50-5.40) Hemoglobin 15.8 g/dL (12.0-15.5) Hematocrit 51.1 % (36.0-47.0) Mean Corpuscular Volume 75 fL (79-100) Mean Corpuscular Hemoglobin 23 pg (25-35) Mean Corpuscular Hemoglobin Concent 31 g/dL (31-37) Red Cell Distribution Width 24.6 % (11.5-14.5) Platelet Count 203 x10^3/uL (140-400) Neutrophils (%) (Auto) 92 % (31-73) Lymphocytes (%) (Auto) 7 % (24-48) Monocytes (%) (Auto) 1 % (0-9) Eosinophils (%) (Auto) 0 % (0-3) Basophils (%) (Auto) 0 % (0-3) Neutrophils # (Auto) 12.1 x10^3uL (1.8-7.7) Lymphocytes # (Auto) 0.8 x10^3/uL (1.0-4.8) Monocytes # (Auto) 0.1 x10^3/uL (0.0-1.1) Eosinophils # (Auto) 0.0 x10^3/uL (0.0-0.7) Basophils # (Auto) 0.0 x10^3/uL (0.0-0.2) Segmented Neutrophils % 92 % (35-66) Band Neutrophils % 1 % (0-9) Lymphocytes % 6 % (24-48) Monocytes % 1 % (0-10) Toxic Vacuolation Slight Platelet Estimate Adequate (ADEQUATE) Polychromasia Slight Anisocytosis Mod Spherocytes Occ Sodium Level 133 mmol/L (136-145) Potassium Level 4.0 mmol/L (3.5-5.1) Chloride Level 95 mmol/L (98-107) Carbon Dioxide Level 32 mmol/L (21-32) Anion Gap 6 (6-14) Blood Urea Nitrogen 12 mg/dL (7-20) Creatinine 0.9 mg/dL (0.6-1.0) Estimated GFR (Cockcroft-Gault) 81.2 BUN/Creatinine Ratio 13 (6-20) Glucose Level 346 mg/dL (70-99) Calcium Level 9.7 mg/dL (8.5-10.1) Total Bilirubin 0.3 mg/dL (0.2-1.0) Aspartate Amino Transf (AST/SGOT) 13 U/L (15-37) Alanine Aminotransferase (ALT/SGPT) 19 U/L (14-59) Alkaline Phosphatase 117 U/L (46-116) Total Protein 8.3 g/dL (6.4-8.2) Albumin 2.5 g/dL (3.4-5.0) Albumin/Globulin Ratio 0.4 (1.0-1.7) Laboratory Tests Test 06/11/18 11:16 06/11/18 11:30 06/11/18 12:32 06/11/18 14:30 O2 Saturation 96 % (92-99) Arterial Blood pH 7.38 (7.35-7.45) Arterial Blood pCO2 at Patient Temp 57 mmHg (35-46) Arterial Blood pO2 at Patient Temp 80 mmHg (75-108) Arterial Blood HCO3 33 mmol/L (21-28) Arterial Blood Base Excess 6 mmol/L (-3-3) FiO2 34 White Blood Count 9.4 x10^3/uL (4.0-11.0) Red Blood Count 6.66 x10^6/uL (3.50-5.40) Hemoglobin 15.8 g/dL (12.0-15.5) Hematocrit 49.1 % (36.0-47.0) Mean Corpuscular Volume 74 fL (79-100) Mean Corpuscular Hemoglobin 24 pg (25-35) Mean Corpuscular Hemoglobin Concent 32 g/dL (31-37) Red Cell Distribution Width 25.5 % (11.5-14.5) Platelet Count 239 x10^3/uL (140-400) Neutrophils (%) (Auto) 74 % (31-73) Lymphocytes (%) (Auto) 18 % (24-48) Monocytes (%) (Auto) 7 % (0-9) Eosinophils (%) (Auto) 1 % (0-3) Basophils (%) (Auto) 1 % (0-3) Neutrophils # (Auto) 7.0 x10^3uL (1.8-7.7) Lymphocytes # (Auto) 1.7 x10^3/uL (1.0-4.8) Monocytes # (Auto) 0.6 x10^3/uL (0.0-1.1) Eosinophils # (Auto) 0.1 x10^3/uL (0.0-0.7) Basophils # (Auto) 0.0 x10^3/uL (0.0-0.2) Platelet Estimate Adequate (ADEQUATE) Giant Platelets Occ Polychromasia Mod Anisocytosis Mod Microcytosis Slight Prothrombin Time 12.4 SEC (11.7-14.0) Prothromb Time International Ratio 1.0 (0.8-1.1) Maternal Serum HCG Beta Subunit 2 mIU/mL (0-5) Sodium Level 139 mmol/L (136-145) Potassium Level 3.8 mmol/L (3.5-5.1) Chloride Level 101 mmol/L (98-107) Carbon Dioxide Level 33 mmol/L (21-32) Anion Gap 5 (6-14) Blood Urea Nitrogen 7 mg/dL (7-20) Creatinine 0.7 mg/dL (0.6-1.0) Estimated GFR (Cockcroft-Gault) 108.5 BUN/Creatinine Ratio 10 (6-20) Glucose Level 165 mg/dL (70-99) Calcium Level 9.2 mg/dL (8.5-10.1) Total Bilirubin 0.4 mg/dL (0.2-1.0) Aspartate Amino Transf (AST/SGOT) 13 U/L (15-37) Alanine Aminotransferase (ALT/SGPT) 19 U/L (14-59) Alkaline Phosphatase 115 U/L (46-116) Troponin I Quantitative < 0.017 ng/mL (0.000-0.055) OF-Ahb-L-Type Natriuretic Peptide 515 pg/mL (0-124) Total Protein 7.7 g/dL (6.4-8.2) Albumin 2.4 g/dL (3.4-5.0) Albumin/Globulin Ratio 0.5 (1.0-1.7) Nasal Screen MRSA (PCR) Negative (Negative) Test 06/12/18 02:55 White Blood Count 13.0 x10^3/uL (4.0-11.0) Red Blood Count 6.81 x10^6/uL (3.50-5.40) Hemoglobin 15.8 g/dL (12.0-15.5) Hematocrit 51.1 % (36.0-47.0) Mean Corpuscular Volume 75 fL (79-100) Mean Corpuscular Hemoglobin 23 pg (25-35) Mean Corpuscular Hemoglobin Concent 31 g/dL (31-37) Red Cell Distribution Width 24.6 % (11.5-14.5) Platelet Count 203 x10^3/uL (140-400) Neutrophils (%) (Auto) 92 % (31-73) Lymphocytes (%) (Auto) 7 % (24-48) Monocytes (%) (Auto) 1 % (0-9) Eosinophils (%) (Auto) 0 % (0-3) Basophils (%) (Auto) 0 % (0-3) Neutrophils # (Auto) 12.1 x10^3uL (1.8-7.7) Lymphocytes # (Auto) 0.8 x10^3/uL (1.0-4.8) Monocytes # (Auto) 0.1 x10^3/uL (0.0-1.1) Eosinophils # (Auto) 0.0 x10^3/uL (0.0-0.7) Basophils # (Auto) 0.0 x10^3/uL (0.0-0.2) Segmented Neutrophils % 92 % (35-66) Band Neutrophils % 1 % (0-9) Lymphocytes % 6 % (24-48) Monocytes % 1 % (0-10) Toxic Vacuolation Slight Platelet Estimate Adequate (ADEQUATE) Polychromasia Slight Anisocytosis Mod Spherocytes Occ Sodium Level 133 mmol/L (136-145) Potassium Level 4.0 mmol/L (3.5-5.1) Chloride Level 95 mmol/L (98-107) Carbon Dioxide Level 32 mmol/L (21-32) Anion Gap 6 (6-14) Blood Urea Nitrogen 12 mg/dL (7-20) Creatinine 0.9 mg/dL (0.6-1.0) Estimated GFR (Cockcroft-Gault) 81.2 BUN/Creatinine Ratio 13 (6-20) Glucose Level 346 mg/dL (70-99) Calcium Level 9.7 mg/dL (8.5-10.1) Total Bilirubin 0.3 mg/dL (0.2-1.0) Aspartate Amino Transf (AST/SGOT) 13 U/L (15-37) Alanine Aminotransferase (ALT/SGPT) 19 U/L (14-59) Alkaline Phosphatase 117 U/L (46-116) Total Protein 8.3 g/dL (6.4-8.2) Albumin 2.5 g/dL (3.4-5.0) Albumin/Globulin Ratio 0.4 (1.0-1.7) Medications Active Scripts Medications Dose Route/Sig Max Daily Dose Days Date Category Albuterol Sulfate Neb Soln (Albuterol Sulfate) 2.5 Mg/3 Ml Vial.neb 1 Vial NEB PRN Q4HRS 04/22/16 Reported Metoprolol Tartrate 50 Mg Tablet 1 Tab PO DAILY 04/22/16 Reported Ventolin Hfa (Albuterol Sulfate) 8 Gm Hfa.aer.ad 8 Gm IH 04/22/16 Reported Metformin Hcl 500 Mg Tablet 1 Tab PO TID 04/22/16 Reported Tramadol Hcl 50 Mg Tablet 1 Tab PO BID 04/22/16 Reported Meloxicam 7.5 Mg Tablet 1 Tab PO BID 04/22/16 Reported Lisinopril-Hctz 20-25 Mg Tab (Lisinopril/Hydrochlorothiazide) 1 Each Tablet 1 Tab PO DAILY 04/22/16 Reported Omeprazole 40 Mg Capsule. 1 Cap PO DAILY 04/22/16 Reported Impression . PT LEFT AMA PRIOR TO MY VISIT MIGUEL STOUT MD Jun 12, 2018 09:01
--- NOTE | 2018-06-12 15:33 | PDOC3 ---
Discharge Summary IPC Date of Admission: Jun 12, 2018 Discharge Date: Jun 12, 2018 Final Diagnosis Problems Medical Problems: (1) Asthma exacerbation Status: Acute Brief Hospital Course Ms. Oden is a 47 old F who left ama Scheduled Albuterol Sulfate (Albuterol Sulfate Neb Soln), 1 VIAL NEB PRN Q4HRS, (Reported) Lisinopril/Hydrochlorothiazide (Lisinopril-Hctz 20-25 Mg Tab), 1 TAB PO DAILY, ( Reported) Meloxicam (Meloxicam), 1 TAB PO BID, (Reported) Metformin Hcl (Metformin Hcl), 1 TAB PO TID, (Reported) Metoprolol Tartrate (Metoprolol Tartrate), 1 TAB PO DAILY, (Reported) Omeprazole (Omeprazole), 1 CAP PO DAILY, (Reported) Tramadol Hcl (Tramadol Hcl), 1 TAB PO BID, (Reported) Miscellaneous Medications Albuterol Sulfate (Ventolin Hfa), 8 GM IH, (Reported) FREDDY BARLOW MD Jun 12, 2018 15:33
[2018-06-12] MEDS ORDERED: ENOXAPARIN 40 MG/0.4 ML SYRINGE. SQ SCH (21:00)
[2018-06-12] MEDS ORDERED: LACTOBACILLUS RHAMNOSUS GG 1 CAPSULE. PO SCH (21:00)
== END 2018-06-12 10:30 | disposition left against medical advice (07) | DRG 640 ==
LOC: ER 10:57 → 1 WEST ICU 12:10
PROVIDERS: ADMIT Family Medicine; ATTEND Family Medicine
DX: Z68.42 Body mass index [BMI] 45.0-49.9, adult (principal); J96.21 Acute and chronic respiratory failure with hypoxia; I50.33 Acute on chronic diastolic (congestive) heart failure; J96.22 Acute and chronic respiratory failure with hypercapnia; J44.1 Chronic obstructive pulmonary disease with (acute) exacerbation; J45.901 Unspecified asthma with (acute) exacerbation; E11.9 Type 2 diabetes mellitus without complications; E66.01 Morbid (severe) obesity due to excess calories; E78.5 Hyperlipidemia, unspecified; F14.10 Cocaine abuse, uncomplicated; F17.210 Nicotine dependence, cigarettes, uncomplicated; F20.9 Schizophrenia, unspecified; I11.0 Hypertensive heart disease with heart failure; Z53.21 Procedure and treatment not carried out due to patient leaving prior to being seen by health care provider; Z82.5 Family history of asthma and other chronic lower respiratory diseases; Z98.891 History of uterine scar from previous surgery; Z99.81 Dependence on supplemental oxygen; Z83.49 Family history of other endocrine, nutritional and metabolic diseases
CPT/HCPCS: 36415; 71045; 80053; 82805; 83880; 84484; 84702; 85007; 85025; 85610; 87641; 93005; 94640; 96365; 96375; 99291; C9113; J1650; J1940; J1956; J2930; J7613; J7620

== ENCOUNTER 2018-11-07 11:44 | Inpatient (IN) | payer MEDICARE ==
[~2018-11-07] VITALS: Ht 157.5 cm; Wt 113.4 kg
[2018-11-07] MEDS ORDERED: LABETALOL 20 MG/4 ML DISP.SYRIN. IVP ONE ×2 (12:00→15:00)
[2018-11-07 12:29] LABS: BASO % 1 % (0-3); EOS # 0.1 x10^3/uL (0.0-0.7); EOS % 2 % (0-3); HEMATOCRIT 52.8 % (36.0-47.0); HEMOGLOBIN 16.7 g/dL (12.0-15.5); LYMPH # 1.7 x10^3/uL (1.0-4.8); LYMPH % 29 % (24-48); MEAN CORPUSCULAR HEMOGLOBIN 25 pg (25-35); MEAN CORPUSCULAR HGB CONC 32 g/dL (31-37); MEAN CORPUSCULAR VOLUME 80 fL (79-100); MONO # 0.5 x10^3/uL (0.0-1.1); MONO % 8 % (0-9); NEUT # 3.6 x10^3uL (1.8-7.7); NEUT % 61 % (31-73); PLATELET COUNT 181 x10^3/uL (140-400); RED BLOOD COUNT 6.63 x10^6/uL (3.50-5.40); RED CELL DISTRIBUTION WIDTH 24.3 % (11.5-14.5)
[2018-11-07 12:45] LABS: CALCIUM 8.7 mg/dL (8.5-10.1); CREATININE 0.8 mg/dL (0.6-1.0); GFR 92.6; POTASSIUM 3.9 mmol/L (3.5-5.1)
[2018-11-07 12:51] LABS: ALBUMIN/GLOBULIN RATIO 0.4 (1.0-1.7); TOTAL BILIRUBIN 0.3 mg/dL (0.2-1.0); TOTAL PROTEIN 7.2 g/dL (6.4-8.2)
--- NOTE | 2018-11-07 13:04 | RAD ---
CHEST PA LATERAL History: SOA Comparison: AP chest, June 12, 2018. Findings: Stable cardiomegaly. Pulmonary vasculature is upper limits of normal. There is perihilar airspace disease on the lateral view. Mild right basilar airspace disease. Stable elevation of right hemidiaphragm. No pleural effusion or pneumothorax is seen. Degenerative endplate spurring of the thoracic spine. IMPRESSION: 1. Perihilar airspace disease on the lateral view. Opacity may be on the left on the frontal view. 2. Mild right basilar airspace disease. Electronically signed by: Les Richards MD (11/07/2018 1:01 PM) [id number]
[2018-11-07 13:46] LABS: PLT ESTIMATE ADEQUATE (ADEQUATE)
[2018-11-07 13:47] LABS: ANISOCYTOSIS SLIGHT
[2018-11-07 15:54] LABS: BILIRUBIN,URINE NEGATIVE (NEG); CLARITY,URINE CLEAR; COLOR,URINE YELLOW; NITRITE,URINE NEGATIVE (NEG); PROTEIN,URINE >=300 mg/dL (NEG-TRACE)
[2018-11-07 15:58] LABS: BACTERIA,URINE 0 /HPF (0-FEW); RBC,URINE RARE /HPF (0-2); SQUAMOUS EPITHELIAL CELL,UR MOD /LPF
[2018-11-07 16:01] LABS: AMPHETAMINE/METHAMPHETAMINE NEG (NEG); BARBITURATES NEG (NEG); BENZODIAZEPINES NEG (NEG); CANNABINOIDS POS (NEG); COCAINE POS (NEG); METHADONE NEG (NEG); OPIATES NEG (NEG); PHENCYCLIDINE POS (NEG)
--- NOTE | 2018-11-07 16:09 | EKG ---
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
--- NOTE | 2018-11-07 16:43 | PDOC1 ---
History and Physical Date of Admission Date of Admission DATE: 11/07/18 TIME: 16:41 Identification/Chief Complaint Chief Complaint Elevated blood pressure Source Source: Chart review, Patient History of Present Illness History of Present Illness Ms Oden is a 48 yo AAF w/ PMHx Asthma, Diabetes-Type II, Hypertension, Schizophrenia/schizoeffective disorder, bipolar,obesity who presents to ED with PCP intoxication and elevated blood pressure awaiting intake to [facility] ([facility] bed). She requires medical stability and clearance prior to admission. EKG - SR with Left anterior fasicular block, prolonged QT. no STEMI, rate 89, Past Medical History Cardiovascular: HTN, Hyperlipidemia Pulmonary: Asthma Psych: Addictions Endocrine: Diabetes Past Surgical History Past Surgical History: No pertinent history Family History Family History: Asthma Social History Smoke: <1 pack per day ALCOHOL: occassional Drugs: None, Cocaine Current Medications Current Medications Current Medications Labetalol HCl (Normodyne Iv Push) 10 mg 1X ONCE IVP Last administered on at 12:27; Start 11/07/18 at 12:00; Stop 11/07/18 at 12:05; Status DC Labetalol HCl (Normodyne Iv Push) 10 mg 1X ONCE IVP Last administered on at 15:00; Start 11/07/18 at 15:00; Stop 11/07/18 at 15:01; Status DC Active Scripts Active Reported Albuterol Sulfate Neb Soln (Albuterol Sulfate) 2.5 Mg/3 Ml Vial.neb 1 Vial NEB PRN Q4HRS Metoprolol Tartrate 50 Mg Tablet 1 Tab PO DAILY Ventolin Hfa (Albuterol Sulfate) 8 Gm Hfa.aer.ad 8 Gm IH Metformin Hcl 500 Mg Tablet 1 Tab PO TID Tramadol Hcl 50 Mg Tablet 1 Tab PO BID Meloxicam 7.5 Mg Tablet 1 Tab PO BID Lisinopril-Hctz 20-25 Mg Tab (Lisinopril/Hydrochlorothiazide) 1 Each Tablet 1 Tab PO DAILY Omeprazole 40 Mg Capsule.dr 1 Cap PO DAILY Allergies Allergies: Coded Allergies: No Known Drug Allergies (Unverified , 04/22/16) ROS General: YES: Fatigue, Malaise PSYCHOLOGICAL ROS: YES: Anxiety, Depression, Hallucinations, Memory difficulties Eyes: No Blurry vision, No Decreased vision, No Double vision, No Dry eyes, No Excessive tearing, No Eye Pain, No Itchy Eyes, No Loss of vision, No Photophobia , No Scotomata, No Uses contacts, No Uses glasses, No Other HEENT: YES: Heacaches; No: Visual Changes, Hearing change, Nasal congestion, Nasal discharge, Oral lesions, Sinus pain, Sore Throat, Epistaxis, Sneezing, Snoring, Tinnitus, Vertigo, Vocal changes, Other ALLERGY AND IMMUNOLOGY: No: Hives, Insect Bite Sensitivity, Itchy/Watery Eyes, Nasal Congestion, Post Nasal Drip, Seasonal Allergies, Other Hematological and Lymphatic: No: Bleeding Problems, Blood Clots, Blood Transfusions, Brusing, Night Sweats, Pallor, Swollen Lymph Nodes, Other ENDOCRINE: No: Breast Changes, Galactorrhea, Hair Pattern Changes, Hot Flashes , Malaise/lethargy, Mood Swings, Palpitations, Polydipsia/polyuria, Skin Changes , Temperature Intolerance, Unexpected Weight Changes, Other Breast: No New/Changing Breast Lumps, No Nipple changes, No Nipple discharge, No Other Respiratory: YES: Shortness of breath; No: Cough, Hemoptysis, Orthopnea, Pleuritic Pain, SOB with excertion, Sputum Changes, Stridor, Tachypnea, Wheezing, Other Cardiovascular: No Chest Pain, No Palpitations, No Orthopnea, No Paroxysmal Noc. Dyspnea, No Edema, No Lt Headedness, No Other Gastrointestinal: Yes Nausea; No Vomiting, No Abdominal Pain, No Diarrhea, No Constipation, No Melena, No Hematochezia, No Other Genitourinary: No Dysuria, No Frequency, No Incontinence, No Hematuria, No Retention, No Discharge, No Urgency, No Pain, No Flank Pain, No Other, No , No , No , No , No , No , No Musculoskeletal: No Gait Disturbance, No Joint Pain, No Joint Stiffness, No Joint Swelling, No Muscle Pain, No Muscular Weakness, No Pain In:, No Swelling In:, No Other Neurological: No Behavorial Changes, No Bowel/Bladder ControlChng, No Confusion , No Dizziness, No Gait Disturbance, No Headaches, No Impaired Coord/balance, No Memory Loss, No Numbness/Tingling, No Seizures, No Speech Problems, No Tremors, No Visual Changes, No Weakness, No Other Skin: No Dry Skin, No Eczema, No Hair Changes, No Lumps, No Mole Changes, No Mottling, No Nail Changes, No Pruritus, No Rash, No Skin Lesion Changes, No Other, No Acne Physical Exam General: Alert, Cooperative, No acute distress HEENT: Atraumatic, PERRLA, EOMI, Mucous membr. moist/pink, Other (Horizontal nystagmus noted) Lungs: Other (Scattered wheezes bilaterally) Heart: S1S2, RRR, no gallops Rectal Exam: not examined Extremities: No clubbing, No cyanosis, No edema, Normal pulses, No tenderness/ swelling Skin: No rashes, No breakdown, No significant lesion Neuro: Normal gait, Normal speech, Strength at 5/5 X4 ext, Normal tone, Sensation intact, Cranial nerves 3-12 NL, Reflexes 2+ Psych/Mental Status: Other (Drowsy, tangential, circumferential) Vitals Vitals Vital Signs Date Time Temp Pulse Resp B/P (MAP) Pulse Ox O2 Delivery O2 Flow Rate FiO2 11/07/18 15:00 89 185/83 11/07/18 11:45 98.6 18 97 Room Air 98.6 Labs Labs Laboratory Tests Test 11/07/18 12:25 11/07/18 15:15 White Blood Count 6.0 x10^3/uL (4.0-11.0) Red Blood Count 6.63 x10^6/uL (3.50-5.40) Hemoglobin 16.7 g/dL (12.0-15.5) Hematocrit 52.8 % (36.0-47.0) Mean Corpuscular Volume 80 fL (79-100) Mean Corpuscular Hemoglobin 25 pg (25-35) Mean Corpuscular Hemoglobin Concent 32 g/dL (31-37) Red Cell Distribution Width 24.3 % (11.5-14.5) Platelet Count 181 x10^3/uL (140-400) Neutrophils (%) (Auto) 61 % (31-73) Lymphocytes (%) (Auto) 29 % (24-48) Monocytes (%) (Auto) 8 % (0-9) Eosinophils (%) (Auto) 2 % (0-3) Basophils (%) (Auto) 1 % (0-3) Neutrophils # (Auto) 3.6 x10^3uL (1.8-7.7) Lymphocytes # (Auto) 1.7 x10^3/uL (1.0-4.8) Monocytes # (Auto) 0.5 x10^3/uL (0.0-1.1) Eosinophils # (Auto) 0.1 x10^3/uL (0.0-0.7) Basophils # (Auto) 0.0 x10^3/uL (0.0-0.2) Platelet Estimate Adequate (ADEQUATE) Anisocytosis Slight Sodium Level 135 mmol/L (136-145) Potassium Level 3.9 mmol/L (3.5-5.1) Chloride Level 101 mmol/L (98-107) Carbon Dioxide Level 29 mmol/L (21-32) Anion Gap 5 (6-14) Blood Urea Nitrogen 11 mg/dL (7-20) Creatinine 0.8 mg/dL (0.6-1.0) Estimated GFR (Cockcroft-Gault) 92.6 BUN/Creatinine Ratio 14 (6-20) Glucose Level 238 mg/dL (70-99) Calcium Level 8.7 mg/dL (8.5-10.1) Total Bilirubin 0.3 mg/dL (0.2-1.0) Aspartate Amino Transf (AST/SGOT) 14 U/L (15-37) Alanine Aminotransferase (ALT/SGPT) 18 U/L (14-59) Alkaline Phosphatase 107 U/L (46-116) Troponin I Quantitative < 0.017 ng/mL (0.000-0.055) TO-Zba-M-Type Natriuretic Peptide 209 pg/mL (0-124) Total Protein 7.2 g/dL (6.4-8.2) Albumin 2.0 g/dL (3.4-5.0) Albumin/Globulin Ratio 0.4 (1.0-1.7) Urine Collection Type Unknown Urine Color Yellow Urine Clarity Clear Urine pH 6.0 Urine Specific [place] 1.025 Urine Protein >=300 mg/dL (NEG-TRACE) Urine Glucose (UA) 250 mg/dL (NEG) Urine Ketones (Stick) Negative mg/dL (NEG) Urine Blood Trace (NEG) Urine Nitrite Negative (NEG) Urine Bilirubin Negative (NEG) Urine Urobilinogen Dipstick 1.0 mg/dL (0.2 mg/dL) Urine Leukocyte Esterase Negative (NEG) Urine RBC Rare /HPF (0-2) Urine WBC 11-20 /HPF (0-4) Urine Squamous Epithelial Cells Mod /LPF Urine Bacteria 0 /HPF (0-FEW) Urine Opiates Screen Neg (NEG) Urine Methadone Screen Neg (NEG) Urine Barbiturates Neg (NEG) Urine Phencyclidine Screen Pos (NEG) Urine Amphetamine/Methamphetamine Neg (NEG) Urine Benzodiazepines Screen Neg (NEG) Urine Cocaine Screen Pos (NEG) Urine Cannabinoids Screen Pos (NEG) Urine Ethyl Alcohol Neg (NEG) Laboratory Tests Test 11/07/18 12:25 11/07/18 15:15 White Blood Count 6.0 x10^3/uL (4.0-11.0) Red Blood Count 6.63 x10^6/uL (3.50-5.40) Hemoglobin 16.7 g/dL (12.0-15.5) Hematocrit 52.8 % (36.0-47.0) Mean Corpuscular Volume 80 fL (79-100) Mean Corpuscular Hemoglobin 25 pg (25-35) Mean Corpuscular Hemoglobin Concent 32 g/dL (31-37) Red Cell Distribution Width 24.3 % (11.5-14.5) Platelet Count 181 x10^3/uL (140-400) Neutrophils (%) (Auto) 61 % (31-73) Lymphocytes (%) (Auto) 29 % (24-48) Monocytes (%) (Auto) 8 % (0-9) Eosinophils (%) (Auto) 2 % (0-3) Basophils (%) (Auto) 1 % (0-3) Neutrophils # (Auto) 3.6 x10^3uL (1.8-7.7) Lymphocytes # (Auto) 1.7 x10^3/uL (1.0-4.8) Monocytes # (Auto) 0.5 x10^3/uL (0.0-1.1) Eosinophils # (Auto) 0.1 x10^3/uL (0.0-0.7) Basophils # (Auto) 0.0 x10^3/uL (0.0-0.2) Platelet Estimate Adequate (ADEQUATE) Anisocytosis Slight Sodium Level 135 mmol/L (136-145) Potassium Level 3.9 mmol/L (3.5-5.1) Chloride Level 101 mmol/L (98-107) Carbon Dioxide Level 29 mmol/L (21-32) Anion Gap 5 (6-14) Blood Urea Nitrogen 11 mg/dL (7-20) Creatinine 0.8 mg/dL (0.6-1.0) Estimated GFR (Cockcroft-Gault) 92.6 BUN/Creatinine Ratio 14 (6-20) Glucose Level 238 mg/dL (70-99) Calcium Level 8.7 mg/dL (8.5-10.1) Total Bilirubin 0.3 mg/dL (0.2-1.0) Aspartate Amino Transf (AST/SGOT) 14 U/L (15-37) Alanine Aminotransferase (ALT/SGPT) 18 U/L (14-59) Alkaline Phosphatase 107 U/L (46-116) Troponin I Quantitative < 0.017 ng/mL (0.000-0.055) TT-Mah-V-Type Natriuretic Peptide 209 pg/mL (0-124) Total Protein 7.2 g/dL (6.4-8.2) Albumin 2.0 g/dL (3.4-5.0) Albumin/Globulin Ratio 0.4 (1.0-1.7) Urine Collection Type Unknown Urine Color Yellow Urine Clarity Clear Urine pH 6.0 Urine Specific [place] 1.025 Urine Protein >=300 mg/dL (NEG-TRACE) Urine Glucose (UA) 250 mg/dL (NEG) Urine Ketones (Stick) Negative mg/dL (NEG) Urine Blood Trace (NEG) Urine Nitrite Negative (NEG) Urine Bilirubin Negative (NEG) Urine Urobilinogen Dipstick 1.0 mg/dL (0.2 mg/dL) Urine Leukocyte Esterase Negative (NEG) Urine RBC Rare /HPF (0-2) Urine WBC 11-20 /HPF (0-4) Urine Squamous Epithelial Cells Mod /LPF Urine Bacteria 0 /HPF (0-FEW) Urine Opiates Screen Neg (NEG) Urine Methadone Screen Neg (NEG) Urine Barbiturates Neg (NEG) Urine Phencyclidine Screen Pos (NEG) Urine Amphetamine/Methamphetamine Neg (NEG) Urine Benzodiazepines Screen Neg (NEG) Urine Cocaine Screen Pos (NEG) Urine Cannabinoids Screen Pos (NEG) Urine Ethyl Alcohol Neg (NEG) Images Images CXR - 1. Perihilar airspace disease on the lateral view. Opacity may be on the left on the frontal view. 2. Mild right basilar airspace disease. VTE Prophylaxis Ordered VTE Prophylaxis Devices: Yes VTE Pharmacological Prophylaxi: Yes Assessment/Plan Assessment/Plan A/P: HTN urgency - with proteinuria, likely end organ damage. Vasotec and labetalol IV prn PCP intoxication - will monitor Asthma - will order nebs Diabetes-Type II - sliding scale Hypertension - as above Schizophrenia/schizoeffective disorder, bipolar - will reconcile her home meds. She needs admission to [facility] Obesity - counseled on weight loss FEN - ADA diet PPX FULL CODE Inpatient for BP management prior to discharge to [facility], may need 1-2 days inpatient for this management. QUENTIN LANGLEY MD Nov 07, 2018 16:43
--- NOTE | 2018-11-07 16:49 | PHYS DOC ---
Past Medical History Past Medical History: Asthma, Diabetes-Type II, Hypertension, Schizophrenia Additional Past Medical Histor: schizoeffective disorder, bipolar,obesity Past Surgical History: Alcohol Use: Occasionally Drug Use: Cocaine, Marijuana Adult General Chief Complaint Chief Complaint: MEDICAL CLEARANCE HPI HPI Patient is a 48 year old AA female who arrived to ER via EMS with need for medical clearance to continue treatment at [facility] for ongoing depression. Pt's blood pressure was elevated at [facility] after taking her lisinopril. Pt states she has been out of her medications for two weeks because she is homeless and had no money to afford her medications. Pt t states she is being treated at [facility] for severe depression. She denies any suicidal or homicidal ideations. She states that her medications were not working so they are trying to figure out what will help her depression. Pt denies any headaches, numbness, tingling, speaking difficulties, difficulty swallowing, or weakness. She denies any pain at this time. Her only complaint is a dry cough at this moment. She reports that she has felt short of breath with the cough for the last 2 days. Review of Systems Review of Systems Constitutional: Denies fever or chills [] Eyes: Denies change in visual acuity, redness, or eye pain [] HENT: Denies nasal congestion or sore throat [] Respiratory: Denies shortness of breath; reports dry cough Cardiovascular: No additional information not addressed in HPI [] GI: Denies abdominal pain, nausea, vomiting, or diarrhea [] : Denies dysuria or hematuria [] Musculoskeletal: Denies back pain or joint pain [] Integument: Denies rash or skin lesions [] Neurologic: Denies headache, focal weakness or sensory changes [] Endocrine: Denies polyuria or polydipsia psychiatric: Denies suicidal or homicidal ideations, see HPI [] All other systems were reviewed and found to be within normal limits, except as documented in this note. Current Medications Current Medications Current Medications Medications (Trade) Dose Ordered Sig/Evelin Start Time Stop Time Status Last Admin Dose Admin Labetalol HCl (Normodyne Iv Push) 10 mg 1X ONCE 11/07/18 15:00 11/07/18 15:01 DC 11/07/18 15:00 10 MG Allergies Allergies Allergies Coded Allergies Type Severity Reaction Last Updated Verified No Known Drug Allergies 04/22/16 No Physical Exam Physical Exam Constitutional: Well developed, well nourished, no acute distress, non-toxic appearance. [] HENT: Normocephalic, atraumatic, bilateral external ears normal, oropharynx moist, nose normal. [] Eyes: PERRLA, conjunctiva normal, no discharge. [] Neck: Normal range of motion, no stridor. [] Cardiovascular:Heart rate regular rhythm, no murmur [] Lungs & Thorax: Bilateral breath sounds clear to auscultation [] Skin: Warm, dry, no erythema, no rash. [] Extremities: No tenderness, no cyanosis, no clubbing, ROM intact, no edema. [] Neurologic: Alert and oriented X 3, normal motor function, normal sensory function, no focal deficits noted. [] Psychologic: Affect normal, judgement normal, mood normal. [] Current Patient Data Vital Signs Vital Signs Date Time Temp Pulse Resp B/P (MAP) Pulse Ox O2 Delivery O2 Flow Rate FiO2 11/07/18 15:00 89 185/83 11/07/18 11:45 98.6 18 97 Room Air 98.6 Lab Values Laboratory Tests Test 11/07/18 12:25 11/07/18 15:15 White Blood Count 6.0 x10^3/uL (4.0-11.0) Red Blood Count 6.63 x10^6/uL (3.50-5.40) H Hemoglobin 16.7 g/dL (12.0-15.5) H Hematocrit 52.8 % (36.0-47.0) H Mean Corpuscular Volume 80 fL (79-100) Mean Corpuscular Hemoglobin 25 pg (25-35) Mean Corpuscular Hemoglobin Concent 32 g/dL (31-37) Red Cell Distribution Width 24.3 % (11.5-14.5) H Platelet Count 181 x10^3/uL (140-400) Neutrophils (%) (Auto) 61 % (31-73) Lymphocytes (%) (Auto) 29 % (24-48) Monocytes (%) (Auto) 8 % (0-9) Eosinophils (%) (Auto) 2 % (0-3) Basophils (%) (Auto) 1 % (0-3) Neutrophils # (Auto) 3.6 x10^3uL (1.8-7.7) Lymphocytes # (Auto) 1.7 x10^3/uL (1.0-4.8) Monocytes # (Auto) 0.5 x10^3/uL (0.0-1.1) Eosinophils # (Auto) 0.1 x10^3/uL (0.0-0.7) Basophils # (Auto) 0.0 x10^3/uL (0.0-0.2) Platelet Estimate Adequate (ADEQUATE) Anisocytosis Slight Sodium Level 135 mmol/L (136-145) L Potassium Level 3.9 mmol/L (3.5-5.1) Chloride Level 101 mmol/L (98-107) Carbon Dioxide Level 29 mmol/L (21-32) Anion Gap 5 (6-14) L Blood Urea Nitrogen 11 mg/dL (7-20) Creatinine 0.8 mg/dL (0.6-1.0) Estimated GFR (Cockcroft-Gault) 92.6 BUN/Creatinine Ratio 14 (6-20) Glucose Level 238 mg/dL (70-99) H Calcium Level 8.7 mg/dL (8.5-10.1) Total Bilirubin 0.3 mg/dL (0.2-1.0) Aspartate Amino Transferase (AST) 14 U/L (15-37) L Alanine Aminotransferase (ALT) 18 U/L (14-59) Alkaline Phosphatase 107 U/L (46-116) Troponin I Quantitative < 0.017 ng/mL (0.000-0.055) LN-Trg-H-Type Natriuretic Peptide 209 pg/mL (0-124) H Total Protein 7.2 g/dL (6.4-8.2) Albumin 2.0 g/dL (3.4-5.0) L Albumin/Globulin Ratio 0.4 (1.0-1.7) L Urine Collection Type Unknown Urine Color Yellow Urine Clarity Clear Urine pH 6.0 Urine Specific [place] 1.025 Urine Protein >=300 mg/dL (NEG-TRACE) Urine Glucose (UA) 250 mg/dL (NEG) Urine Ketones (Stick) Negative mg/dL (NEG) Urine Blood Trace (NEG) Urine Nitrite Negative (NEG) Urine Bilirubin Negative (NEG) Urine Urobilinogen Dipstick 1.0 mg/dL (0.2 mg/dL) Urine Leukocyte Esterase Negative (NEG) Urine RBC Rare /HPF (0-2) Urine WBC 11-20 /HPF (0-4) Urine Squamous Epithelial Cells Mod /LPF Urine Bacteria 0 /HPF (0-FEW) Urine Opiates Screen Neg (NEG) Urine Methadone Screen Neg (NEG) Urine Barbiturates Neg (NEG) Urine Phencyclidine Screen Pos (NEG) Urine Amphetamine/Methamphetamine Neg (NEG) Urine Benzodiazepines Screen Neg (NEG) Urine Cocaine Screen Pos (NEG) Urine Cannabinoids Screen Pos (NEG) Urine Ethyl Alcohol Neg (NEG) Laboratory Tests 11/07/18 12:25 Laboratory Tests 11/07/18 12:25 EKG EKG 1202 SR with Left anterior fasicular block, prolonged QT. no STEMI, rate 89, read by Dr. Mccrary at 1205[] Radiology/Procedures Radiology/Procedures PROCEDURE: CHEST PA & LATERAL CHEST PA LATERAL History: SOA Comparison: AP chest, June 12, 2018. Findings: Stable cardiomegaly. Pulmonary vasculature is upper limits of normal. There is perihilar airspace disease on the lateral view. Mild right basilar airspace disease. Stable elevation of right hemidiaphragm. No pleural effusion or pneumothorax is seen. Degenerative endplate spurring of the thoracic spine. IMPRESSION: 1. Perihilar airspace disease on the lateral view. Opacity may be on the left on the frontal view. 2. Mild right basilar airspace disease. [] Course & Med Decision Making Course & Med Decision Making Pertinent Labs and Imaging studies reviewed. (See chart for details) DX: hypertensive urgency, PCP intoxication, proteinuria Pt was given 2 doses of 10 mg labetalol IV in the ER. Her BP remained elevated 185/88 at 1630. Labs were concerning for proteinuria, positive urine drug screen for PCP, marijuana, and cocaine. 1640 Dr. Ying was contacted and the decision to admit patient was made. [] Dragon Disclaimer Dragarnulfo Disclaimer This electronic medical record was generated, in whole or in part, using a voice recognition dictation system. Departure Departure Impression: Primary Impression: Hypertensive urgency Additional Impressions: Proteinuria PCP intoxication Disposition: ADMITTED INPATIENT Admitting Physician: Other (SHIVAM) Referrals: UNKNOWN PCP NAME (PCP) Problem Qualifiers Additional Impressions: Proteinuria Proteinuria type: unspecified Qualified Codes: R80.9 - Proteinuria, unspecified PCP intoxication Complication of substance-induced condition: uncomplicated Qualified Codes: F16.920 - Hallucinogen use, unspecified with intoxication, uncomplicated NEGRA RIVERA APRN Nov 07, 2018 16:49
[2018-11-07 19:44] VITALS: BP 157/56
[2018-11-07] MEDS ORDERED: DEXTROSE 50% 25 GM / 50ML DISP.SYRIN. IV PRN (20:45)
[2018-11-07] MEDS: traMADol 50 MG TABLET PO SCH (21:53)
[2018-11-07] MEDS: amLODIPine BESYLATE 5 MG TABLET PO SCH (21:55)
[2018-11-07] MEDS: INSULIN GLARGINE 300 UNITS/3 ML INSULN.PEN. SQ SCH (22:01)
[2018-11-07] MEDS: ENALAPRILAT 2.5 MG/2 ML VIAL. IVP PRN (22:58)
[2018-11-07 23:14] VITALS: BP 191/98
[2018-11-08] VITALS (7 sets, daily range): BP systolic 155–194; BP diastolic 79–116
[2018-11-08] MEDS: ALBUTEROL SULFATE 2.5 MG/3 ML NEBU. NEB PRN ×2 (03:15→07:53)
[2018-11-08] MEDS: ENALAPRILAT 2.5 MG/2 ML VIAL. IVP PRN ×3 (04:38→23:07)
[2018-11-08] MEDS: PANTOPRAZOLE 40 MG TABLET.DR. PO SCH (06:45)
[2018-11-08] MEDS: INSULIN LISPRO 300 UNITS/3 ML INSULN.PEN. SQ SCH ×3 (08:24→16:42)
[2018-11-08] MEDS: LISINOPRIL 20 MG TABLET PO SCH (08:26)
[2018-11-08] MEDS: hydroCHLOROthiazide 25 MG TABLET PO SCH (08:26)
[2018-11-08] MEDS: traMADol 50 MG TABLET PO SCH ×2 (08:27→20:45)
[2018-11-08] MEDS: amLODIPine BESYLATE 5 MG TABLET PO SCH (08:27)
[2018-11-08] MEDS ORDERED: RANI150T2 PO (10:47)
[2018-11-08] MEDS ORDERED: AMLO5TAB10 PO (10:48)
--- NOTE | 2018-11-08 10:52 | NUR ---
[place] pharmacy called t confirm patient medications, see medication reconciliation. Patient has not filled tramadol since 2017 and has not filled RT treatment or inhaler since 2018, will notify Dr. Ying on rounds.
[2018-11-08 12:03] LABS: ALBUMIN 2.1 g/dL (3.4-5.0); CALCIUM 8.6 mg/dL (8.5-10.1); CREATININE 0.8 mg/dL (0.6-1.0); GFR 92.6; PHOSPHORUS 3.9 mg/dL (2.6-4.7); POTASSIUM 4.2 mmol/L (3.5-5.1)
--- NOTE | 2018-11-08 13:00 | NUR ---
ROSEMARY spoke with pt per her request. Pt reports she had stayed at [facility] for one day before coming to [facility]. Pt reports she was living in a hotel prior going to [facility]. Pt states she does not have friends or family that can help her. Pt reports she does not have anywhere else to go upon dc and wants to know if [facility] can take her back. ROSEMARY phoned [facility], spoke with Dagmar, and confirmed pt is able to return once medically stable. Dagmar reports pt was sent to [facility] due to having lower 02 and elevated BP. Discussed with pt and RN.
--- NOTE | 2018-11-08 13:23 | NUR ---
D/W Dr. Ying HTN, patient complaint of right sore shoulder from fall Outpatient, to order x-ray. See notes and orders.
--- NOTE | 2018-11-08 16:25 | PDOC ---
PROGRESS NOTES Chief Complaint Chief Complaint HTN urgency PCP intoxication Right shoulder pain Asthma Diabetes-Type II Hypertension Schizophrenia/schizoeffective disorder, bipolar Obesity History of Present Illness History of Present Illness Ms Oden is a 48 yo AAF w/ PMHx Asthma, Diabetes-Type II, Hypertension, Schizophrenia/schizoeffective disorder, bipolar,obesity who presents to ED with PCP intoxication and elevated blood pressure awaiting intake to [facility] ([facility] bed). She requires medical stability and clearance prior to admission. EKG - SR with Left anterior fasicular block, prolonged QT. no STEMI, rate 89, Was positive for PCP. Has still had some BP elevations through the day today, now c/o right shoulder pain, notes she fell. A/P: HTN urgency - with proteinuria, likely end organ damage. Vasotec and labetalol IV prn. Increase amlodipine today PCP intoxication - will monitor, much better Right shoulder pain - will establish x-ray. Tylenol, tramadol for pain Asthma - will cont nebs Diabetes-Type II - sliding scale covering well Hypertension - as above Schizophrenia/schizoeffective disorder, bipolar - will reconcile her home meds. She needs admission to [facility] Obesity - counseled on weight loss FEN - ADA diet PPX FULL CODE Inpatient for BP management prior to discharge to [facility], may be ok for d/c in AM. Vitals Vitals Vital Signs Date Time Temp Pulse Resp B/P (MAP) Pulse Ox O2 Delivery O2 Flow Rate FiO2 11/08/18 15:56 90 168/95 11/08/18 15:00 97.3 17 95 97.3 11/08/18 09:27 Nasal Cannula 2.0 Physical Exam General: Alert, Cooperative, No acute distress Extremities: No clubbing, No cyanosis, No edema, Normal pulses, No tenderness/ swelling Skin: No rashes, No breakdown, No significant lesion Labs LABS Laboratory Tests Test 11/07/18 19:57 11/08/18 07:07 11/08/18 11:15 11/08/18 11:20 Glucose (Fingerstick) 240 mg/dL (70-99) 178 mg/dL (70-99) 221 mg/dL (70-99) Sodium Level 138 mmol/L (136-145) Potassium Level 4.2 mmol/L (3.5-5.1) Chloride Level 100 mmol/L (98-107) Carbon Dioxide Level 33 mmol/L (21-32) Anion Gap 5 (6-14) Blood Urea Nitrogen 10 mg/dL (7-20) Creatinine 0.8 mg/dL (0.6-1.0) Estimated GFR (Cockcroft-Gault) 92.6 Glucose Level 244 mg/dL (70-99) Calcium Level 8.6 mg/dL (8.5-10.1) Phosphorus Level 3.9 mg/dL (2.6-4.7) Albumin 2.1 g/dL (3.4-5.0) Assessment and Plan Assessmemt and Plan Problems Medical Problems: (1) Hypertensive urgency Status: Acute (2) PCP intoxication Status: Acute (3) Proteinuria Status: Acute Comment Review of Relevant I have reviewed the following items chayo (where applicable) has been applied. Labs Laboratory Tests Test 11/07/18 12:25 11/07/18 15:15 11/07/18 19:57 11/08/18 07:07 White Blood Count 6.0 x10^3/uL (4.0-11.0) Red Blood Count 6.63 x10^6/uL (3.50-5.40) Hemoglobin 16.7 g/dL (12.0-15.5) Hematocrit 52.8 % (36.0-47.0) Mean Corpuscular Volume 80 fL (79-100) Mean Corpuscular Hemoglobin 25 pg (25-35) Mean Corpuscular Hemoglobin Concent 32 g/dL (31-37) Red Cell Distribution Width 24.3 % (11.5-14.5) Platelet Count 181 x10^3/uL (140-400) Neutrophils (%) (Auto) 61 % (31-73) Lymphocytes (%) (Auto) 29 % (24-48) Monocytes (%) (Auto) 8 % (0-9) Eosinophils (%) (Auto) 2 % (0-3) Basophils (%) (Auto) 1 % (0-3) Neutrophils # (Auto) 3.6 x10^3uL (1.8-7.7) Lymphocytes # (Auto) 1.7 x10^3/uL (1.0-4.8) Monocytes # (Auto) 0.5 x10^3/uL (0.0-1.1) Eosinophils # (Auto) 0.1 x10^3/uL (0.0-0.7) Basophils # (Auto) 0.0 x10^3/uL (0.0-0.2) Platelet Estimate Adequate (ADEQUATE) Anisocytosis Slight Sodium Level 135 mmol/L (136-145) Potassium Level 3.9 mmol/L (3.5-5.1) Chloride Level 101 mmol/L (98-107) Carbon Dioxide Level 29 mmol/L (21-32) Anion Gap 5 (6-14) Blood Urea Nitrogen 11 mg/dL (7-20) Creatinine 0.8 mg/dL (0.6-1.0) Estimated GFR (Cockcroft-Gault) 92.6 BUN/Creatinine Ratio 14 (6-20) Glucose Level 238 mg/dL (70-99) Calcium Level 8.7 mg/dL (8.5-10.1) Total Bilirubin 0.3 mg/dL (0.2-1.0) Aspartate Amino Transf (AST/SGOT) 14 U/L (15-37) Alanine Aminotransferase (ALT/SGPT) 18 U/L (14-59) Alkaline Phosphatase 107 U/L (46-116) Troponin I Quantitative < 0.017 ng/mL (0.000-0.055) JG-Gew-O-Type Natriuretic Peptide 209 pg/mL (0-124) Total Protein 7.2 g/dL (6.4-8.2) Albumin 2.0 g/dL (3.4-5.0) Albumin/Globulin Ratio 0.4 (1.0-1.7) Urine Collection Type Unknown Urine Color Yellow Urine Clarity Clear Urine pH 6.0 Urine Specific [place] 1.025 Urine Protein >=300 mg/dL (NEG-TRACE) Urine Glucose (UA) 250 mg/dL (NEG) Urine Ketones (Stick) Negative mg/dL (NEG) Urine Blood Trace (NEG) Urine Nitrite Negative (NEG) Urine Bilirubin Negative (NEG) Urine Urobilinogen Dipstick 1.0 mg/dL (0.2 mg/dL) Urine Leukocyte Esterase Negative (NEG) Urine RBC Rare /HPF (0-2) Urine WBC 11-20 /HPF (0-4) Urine Squamous Epithelial Cells Mod /LPF Urine Bacteria 0 /HPF (0-FEW) Urine Opiates Screen Neg (NEG) Urine Methadone Screen Neg (NEG) Urine Barbiturates Neg (NEG) Urine Phencyclidine Screen Pos (NEG) Urine Amphetamine/Methamphetamine Neg (NEG) Urine Benzodiazepines Screen Neg (NEG) Urine Cocaine Screen Pos (NEG) Urine Cannabinoids Screen Pos (NEG) Urine Ethyl Alcohol Neg (NEG) Glucose (Fingerstick) 240 mg/dL (70-99) 178 mg/dL (70-99) Test 11/08/18 11:15 11/08/18 11:20 Glucose (Fingerstick) 221 mg/dL (70-99) Sodium Level 138 mmol/L (136-145) Potassium Level 4.2 mmol/L (3.5-5.1) Chloride Level 100 mmol/L (98-107) Carbon Dioxide Level 33 mmol/L (21-32) Anion Gap 5 (6-14) Blood Urea Nitrogen 10 mg/dL (7-20) Creatinine 0.8 mg/dL (0.6-1.0) Estimated GFR (Cockcroft-Gault) 92.6 Glucose Level 244 mg/dL (70-99) Calcium Level 8.6 mg/dL (8.5-10.1) Phosphorus Level 3.9 mg/dL (2.6-4.7) Albumin 2.1 g/dL (3.4-5.0) Laboratory Tests Test 11/07/18 19:57 11/08/18 07:07 11/08/18 11:15 11/08/18 11:20 Glucose (Fingerstick) 240 mg/dL (70-99) 178 mg/dL (70-99) 221 mg/dL (70-99) Sodium Level 138 mmol/L (136-145) Potassium Level 4.2 mmol/L (3.5-5.1) Chloride Level 100 mmol/L (98-107) Carbon Dioxide Level 33 mmol/L (21-32) Anion Gap 5 (6-14) Blood Urea Nitrogen 10 mg/dL (7-20) Creatinine 0.8 mg/dL (0.6-1.0) Estimated GFR (Cockcroft-Gault) 92.6 Glucose Level 244 mg/dL (70-99) Calcium Level 8.6 mg/dL (8.5-10.1) Phosphorus Level 3.9 mg/dL (2.6-4.7) Albumin 2.1 g/dL (3.4-5.0) Medications Current Medications Labetalol HCl (Normodyne Iv Push) 10 mg 1X ONCE IVP Last administered on 12:27; Start 11/07/18 at 12:00; Stop 11/07/18 at 12:05; Status DC Labetalol HCl (Normodyne Iv Push) 10 mg 1X ONCE IVP Last administered on 15:00; Start 11/07/18 at 15:00; Stop 11/07/18 at 15:01; Status DC Enalaprilat (Vasotec Inj) 2.5 mg PRN Q6HRS PRN IVP HYPERTENSION, SEE COMMENTS Last administered on 11/08/18 15:56; Start 11/07/18 at 20:45 Albuterol Sulfate (Ventolin Neb Soln) 2.5 mg PRN Q4HRS PRN NEB SHORTNESS OF BREATH Last administered on 11/08/18 07:53; Start 11/07/18 at 20:45 Tramadol HCl (Ultram) 50 mg BID PO Last administered on 11/08/18 08:27; Start 11/07/18 at 21:00 Pantoprazole Sodium (Protonix) 40 mg DAILYAC PO Last administered on 11/08/18 06:45; Start 11/08/18 at 07:30 Amlodipine Besylate (Norvasc) 5 mg DAILY PO Last administered on 11/08/18 08: 27; Start 11/07/18 at 20:45 Lisinopril (Prinivil) 20 mg DAILY PO Last administered on 11/08/18 08:26; Start 11/08/18 at 09:00 Insulin Glargine (Lantus) 5 units QHS SQ Last administered on 11/07/18 22:01; Start 11/07/18 at 21:00 Insulin Human Lispro (HumaLOG) 0-7 UNITS TIDWMEALS SQ Last administered on 11/08at 11:36; Start 11/08/18 at 08:00 Dextrose (Dextrose 50%-Water Syringe) 12.5 gm PRN Q15MIN PRN IV SEE COMMENTS; Start 11/07/18 at 20:45 Hydrochlorothiazide (Hydrodiuril) 25 mg DAILY PO Last administered on 2/21/ 19at 08:26; Start 11/08/18 at 09:00 Active Scripts Active Reported Amlodipine Besylate 5 Mg Tablet 5 Mg PO DAILY Ranitidine Hcl 150 Mg Tablet 1 Tab PO BID Albuterol Sulfate Neb Soln (Albuterol Sulfate) 2.5 Mg/3 Ml Vial.neb 1 Vial NEB PRN Q4HRS Ventolin Hfa (Albuterol Sulfate) 8 Gm Hfa.aer.ad 8 Gm IH Tramadol Hcl 50 Mg Tablet 1 Tab PO BID Lisinopril-Hctz 20-25 Mg Tab (Lisinopril/Hydrochlorothiazide) 1 Each Tablet 1 Tab PO DAILY Omeprazole 40 Mg Capsule. 1 Cap PO DAILY Vitals/I & O Vital Sign - Last 24 Hours 11/07/18 11/07/18 11/07/18 11/07/18 16:30 19:44 20:00 21:53 Temp 98.2 98.2 Pulse 85 92 Resp 18 20 B/P (MAP) 185/88 (120) 157/56 (89) Pulse Ox 95 99 95 O2 Delivery Nasal Cannula Nasal Cannula Room Air Room Air O2 Flow Rate 2.0 11/07/18 11/07/18 11/07/18 11/07/18 21:55 22:53 22:58 23:14 Temp 97.5 97.5 Pulse 87 85 88 Resp 20 B/P (MAP) 178/90 182/94 191/98 (129) Pulse Ox 100 100 O2 Delivery Room Air 11/08/18 11/08/18 11/08/18 11/08/18 03:15 04:00 04:38 07:00 Temp 97.8 97.8 Pulse 91 91 82 Resp 22 B/P (MAP) 188/108 (134) 188/108 194/116 (142) Pulse Ox 95 100 O2 Delivery Nasal Cannula O2 Flow Rate 2.0 11/08/18 11/08/18 11/08/18 11/08/18 07:54 08:00 08:26 08:27 Pulse 82 Resp 18 B/P (MAP) 194/116 Pulse Ox 95 O2 Delivery Nasal Cannula Nasal Cannula Nasal Cannula O2 Flow Rate 2.0 2.0 2.0 11/08/18 11/08/18 11/08/18 11/08/18 08:27 09:27 11:00 15:00 Temp 97.8 97.3 97.8 97.3 Pulse 82 80 90 Resp 18 18 17 B/P (MAP) 194/116 176/79 (111) 168/95 (119) Pulse Ox 91 95 O2 Delivery Nasal Cannula O2 Flow Rate 2.0 11/08/18 15:56 Pulse 90 B/P (MAP) 168/95 Intake and Output 11/07/18 11/07/18 11/08/18 14:59 22:59 06:59 Intake Total 180 ml 0 ml Balance 180 ml 0 ml QUENTIN LANGLEY MD Nov 08, 2018 16:25
[2018-11-08] MEDS ORDERED: amLODIPine BESYLATE 5 MG TABLET PO ONE (16:30)
--- NOTE | 2018-11-08 16:34 | NUR ---
Patient blood pressure 168/95, IV vasotec per order, see prn. Blood pressure decreased to 164/84, additional amlodipine 5 mg po given per order. Patient verb. understanding medications and POC: shoulder x-ray r/t pain after fall Outpatient. Continue cares and monitor.
[2018-11-08] MEDS: INSULIN GLARGINE 300 UNITS/3 ML INSULN.PEN. SQ SCH (20:49)
[2018-11-09 03:00] VITALS: BP 189/91
[2018-11-09] MEDS: METOPROLOL TART IMMED RELEASE 25 MG TABLET. PO SCH ×2 (04:02→08:32)
[2018-11-09 05:57] LABS: CALCIUM 9.1 mg/dL (8.5-10.1); CREATININE 0.7 mg/dL (0.6-1.0); GFR 108.1; PHOSPHORUS 4.3 mg/dL (2.6-4.7); POTASSIUM 3.8 mmol/L (3.5-5.1)
[2018-11-09 06:35] VITALS: BP 150/78
[2018-11-09 07:00] VITALS: BP 169/87
[2018-11-09] MEDS: PANTOPRAZOLE 40 MG TABLET.DR. PO SCH (07:34)
[2018-11-09] MEDS: INSULIN LISPRO 300 UNITS/3 ML INSULN.PEN. SQ SCH ×2 (07:39→11:32)
--- NOTE | 2018-11-09 07:56 | RAD ---
Right shoulder, 3 views, 11/08/2018: HISTORY: Shoulder pain after a fall There are severe degenerative changes at the glenohumeral articulation with subchondral sclerosis, spurring, cyst formation and articular irregularity. Moderate degenerative change is present at the AC joint. No acute fracture or dislocation is identified. IMPRESSION: 1. Severe degenerative change. 2. No acute bony abnormality is detected. Electronically signed by: Ac Muller MD (11/09/2018 7:53 AM) [facility]
[2018-11-09] MEDS: hydroCHLOROthiazide 25 MG TABLET PO SCH (08:31)
[2018-11-09] MEDS: LISINOPRIL 20 MG TABLET PO SCH (08:31)
[2018-11-09] MEDS: traMADol 50 MG TABLET PO SCH (08:33)
[2018-11-09] MEDS ORDERED: amLODIPine BESYLATE 10 MG TABLET PO SCH (09:00)
[2018-11-09 11:00] VITALS: BP 144/77
--- NOTE | 2018-11-09 13:36 | NUR ---
Patient verb. understanding POC: CXR and 6 minute walk to monitor oxygen needs. RT and radiology notified.
--- NOTE | 2018-11-09 14:33 | RAD ---
Chest, 2 views, 11/09/2018: HISTORY: Hypoxia, cough Comparison is made to a study from 11/07/2018. The heart is mildly enlarged. There is minimal persistent infiltrate laterally in the right base. A similar appearance was present on the previous study. The left lung is clear. No pleural fluid is evident. No new abnormality is detected. IMPRESSION: Minimal ongoing right basilar infiltrate. Electronically signed by: Ac Muller MD (11/09/2018 2:31 PM) [facility]
--- NOTE | 2018-11-09 14:37 | NUR ---
Dr. Ying notified patient requesting to see him, states she wants to leave, 6 minute walk done and reported preliminary results to Dr. Ying, [place] RT states patient sats. stayed around 87-88% on room air with approx. 1 second dip to 86%. CXR done, Dr. Ying to check CXR and to see patient. Patient notified.
[2018-11-09 15:00] VITALS: BP 148/81
[2018-11-09] MEDS ORDERED: METO25TA4 PO (15:10)
[2018-11-09] MEDS ORDERED: METF500T16 PO (15:10)
[2018-11-09] MEDS ORDERED: DOXY100C14 PO (15:18)
--- NOTE | 2018-11-09 15:27 | NUR ---
Patient refusing to wait to see Dr. Ying and wait for discharge orders, AMA papers signed, nursing molding supervisor Noelle QUINN notified patient left AMA, information technology administrator and RN to patient friend car at entrance. Patient left AMA with friend with all belongings.
[2018-11-09] MEDS ORDERED: DOXYCYCLINE HYCLATE 100 MG TABLET PO SCH (15:30)
--- NOTE | 2018-11-09 15:32 | NUR ---
Addendum: Dr. Ying notified patient left AMA.
--- NOTE | 2018-11-09 15:32 | NUR ---
Addendum: patient escorted out to ride accompanied by RN and Security Jackson.
== END 2018-11-09 15:31 | disposition left against medical advice (07) | DRG 304 ==
LOC: ER 11:44 → 5 NORTH 16:40 → ER 18:18
PROVIDERS: ADMIT Internal Medicine; ATTEND Internal Medicine
DX: I16.0 Hypertensive urgency (principal); E43 Unspecified severe protein-calorie malnutrition; Z68.42 Body mass index [BMI] 45.0-49.9, adult; I10 Essential (primary) hypertension; R80.9 Proteinuria, unspecified; F16.129 Hallucinogen abuse with intoxication, unspecified; E78.5 Hyperlipidemia, unspecified; E11.9 Type 2 diabetes mellitus without complications; E66.9 Obesity, unspecified; F17.210 Nicotine dependence, cigarettes, uncomplicated; F20.9 Schizophrenia, unspecified; F32.9 Major depressive disorder, single episode, unspecified; J45.909 Unspecified asthma, uncomplicated; Z59.0 Homelessness; Z82.5 Family history of asthma and other chronic lower respiratory diseases; Z91.14 Patient's other noncompliance with medication regimen; Z98.891 History of uterine scar from previous surgery; F14.90 Cocaine use, unspecified, uncomplicated; Z53.21 Procedure and treatment not carried out due to patient leaving prior to being seen by health care provider
CPT/HCPCS: 36415; 71046; 73030; 80053; 80069; 80307; 81001; 82962; 83880; 84484; 85025; 87086; 93005; 94618; 94640; 94760; 96374; 96376; J1815; J3490; J7613; 99285-25

== ENCOUNTER → 2019-03-12 | Outpatient (CLI) | payer OTHER ==
[~2019-03-12] MED LIST changes: +AMLO5TAB10 PO; +DOXY100C14 PO; +METO25TA4 PO; +RANI150T2 PO
--- NOTE | 2019-03-12 16:12 | KCIC ---
Thyroid ultrasound 03/12/2019 INDICATION: Thyroid nodule COMPARISON STUDY: None Discussion: Ultrasound evaluation the thyroid gland was performed. Static images are submitted to PACS. The right thyroid measures 4.5 x 2.1 x 2.6 cm. The left thyroid measures 4.6 x 2.0 x 2.5 cm. Thyroid isthmus measures 5 mm in diameter. There is therefore general mild thyromegaly. Within the inferior lobe of the right thyroid is a complex cystic and solid nodule measuring 2.2 x 1.3 x 2.1 cm. No internal blood flow is identified on color Doppler imaging. No definitive calcification is identified. The remainder of the thyroid gland has a homogeneous normal echotexture. No hyperemia is seen. IMPRESSION: 2.2 cm complex cystic and solid nodule, inferior right thyroid. Fine-needle aspiration recommended. 2015 [place] [employer] guidelines for assessment of thyroid nodules based on Sonographic pattern On a thyroid ultrasound, a nodule is classified into one of five categories: benign pattern: (0% risk): no biopsy -completely cystic nodules with well-defined allen very low suspicion pattern (<3% risk): biopsy if ?2 cm (or ultrasound observation) - spongiform nodules and nodules with interspersed cystic spaces, without any of the features in more suspicious patterns low suspicion pattern (5-10% risk): biopsy if ?1.5 cm -isoechoic or hyperechoic nodule -partially cystic nodule with a peripheral solid component -none of the following features: microcalcifications (see other points below) irregular margins extrathyroidal extension taller than wide intermediate suspicion pattern (10-20% risk): biopsy if ?1 cm -hypoechoic solid nodule with smooth margins -none of the following features: microcalcifications (see other points below) irregular margins extrathyroidal extension taller than wide high suspicion pattern (>70-90% risk): biopsy if ?1 cm -solid hypoechoic nodule (or solid hypoechoic component of a partially cystic nodule), with at least one of these features: microcalcifications irregular margins (infiltrative, microlobulated) extrathyroidal extension taller than wide rim calcifications with an extrusive soft tissue component lymphadenopathy Electronically signed by: Carlos Enrique Abernathy MD (03/12/2019 4:09 PM) [id number]
== END | disposition home or self-care (01) ==
LOC: KCIC US 14:57
PROVIDERS: ATTEND Specialist
DX: E04.1 Nontoxic single thyroid nodule (principal)
CPT/HCPCS: 76536

== ENCOUNTER → 2019-04-30 | Outpatient (CLI) | payer OTHER ==
--- NOTE | 2019-04-30 16:12 | RAD ---
CLINICAL HISTORY: FNA THYROID THYROID NODULE COMPARISON: Thyroid ultrasound 03/12/2019 PROCEDURE: Preliminary sonographic images of the thyroid gland were obtained. A 2.2 x 1.6 x 1.9 cm heterogeneously hypoechoic right thyroid nodule is again seen. The procedure and risks of ultrasound guided aspiration were explained to the patient and informed written consent obtained. Laterality was confirmed. The site of aspiration was marked. Verification pause/timeout was observed. Using standard sterile technique, 4 25 G fine needle aspirations of the right thyroid nodule were obtained. In addition an additional sample was obtained using a Rotex needle. There were no immediate complications. Estimated blood loss: 0 mL Performing physician: Dr. Nataly Arana IMPRESSION: Successful FNA of the right thyroid nodule Electronically signed by: Ko Arana MD (04/30/2019 4:10 PM) [facility]
--- NOTE | 2019-05-06 12:06 | PATHOLOGY ---
Note [facility] Accession Number: [id number] TESTS RESULT FLAG UNITS REF RANGE LAB Clinician Provided Cytology Information No. of containers..01 Other (Miscellaneous) Source: RIGHT THYROID NODULE DIAGNOSIS: RIGHT THYROID NODULE [place] CATEGORY II. BENIGN. SMEARS CONSIST OF BENIGN FOLLICULAR CELLS, RARE COLLOID, AND HEMOSIDERIN-LADEN MACROPHAGES. FAVOR BENIGN ADENOMATOUS NODULE. SEEN IN CONSULTATION WITH DR. ZAY LALA. THIS INTERPRETATION INCLUDES EVALUATION OF A CELL BLOCK. Pathologist ICD10: 02 R89.6 Signed out by: Francois Flores MD, Pathologist NPI- [id number] Performed by: Anisha Ramírez, Engineer Intern ([facility]) Gross description: 01 30ML, PINK TINT, CLEAR /LCS FLAG LEGEND: L-Low Normal,H-High Normal,LL-Alert Low,HH-Alert High <-Panic Low,>-Panic High,A-Abnormal,AA-Critical Abnormal Performed at: [facility] [address] [place] [address] Moshe Lisa MD, 02 [facility] [address] [place] [address] Francois Flores MD, Specimen Comment: A courtesy copy of this report has been sent to Specimen Comment: [phone], , . Specimen Comment: Report sent to ,DR TAFOYA / DR VIVEROS Specimen Comment: A duplicate report has been generated due to demographic updates. Performed at: [address], [place], [place] [id number] MD Moshe Lisa MD Phone: [phone]
== END ==
LOC: US 15:26
PROVIDERS: ATTEND Specialist
DX: E04.1 Nontoxic single thyroid nodule (principal)
CPT/HCPCS: 10005; 76942; 88173; 88305

== ENCOUNTER → 2020-07-17 | Outpatient (CLI) | payer OTHER ==
[~2020-07-17] MED LIST changes: +AMLO-186 PO; -AMLO5TAB10 PO; +LISI1TAB20 PO; -LISI1TAB7 PO; +OMEP40CA45 PO; -OMEP40CA5 PO
--- NOTE | 2020-07-17 10:37 | KCIC ---
Chest radiograph 07/17/2020 12:00 AM INDICATION: Pulmonary fibrosis COMPARISON: 11/09/2018 TECHNIQUE: Frontal and lateral views of the chest are provided. FINDINGS: The cardiomediastinal silhouette is within normal limits. There are no pleural effusions. There is no pulmonary vascular congestion. There is no pneumothorax. Coarse interstitial changes are identified in perihilar distribution predominantly involving the right middle and lower lobes. There is chronic elevation the right hemidiaphragm. Findings are similar to prior examination from 11/09/2018. No significant osseous abnormality is identified. IMPRESSION: Chronic interstitial changes are identified with lower lung zone predominance involving the right middle and lower lobes. Findings appear stable from prior examination from 11/09/2018. No new airspace consolidation is identified. Electronically signed by: Chela Payton MD (07/17/2020 10:34 AM) [id number]
== END ==
LOC: KCIC 09:54
PROVIDERS: ATTEND Family Medicine
DX: J84.10 Pulmonary fibrosis, unspecified (principal)
CPT/HCPCS: 71046

== ENCOUNTER 2020-09-30 10:25 | Emergency (ER) | payer OTHER | END 2020-09-30 10:32 | disposition left against medical advice (07) | LOC: ER 10:26 | DX: R06.02 Shortness of breath (principal); Z53.21 Procedure and treatment not carried out due to patient leaving prior to being seen by health care provider ==